=== PATIENT | female | born 1945 | race Caucasian/White ===

== ENCOUNTER 2018-01-21 12:00 | Inpatient (IN) ==
--- NOTE | 2018-01-21 12:11 | ED ---
HPI General Chief Complaint: Neuro Symptoms/Deficit Stated Complaint: neuro symp Time Seen by Provider: 01/21/18 12:04 Source: patient and EMS Mode of arrival: EMS Limitations: no limitations History of Present Illness HPI Narrative: Patient is a 72-year-old female who presents the emergency room by EMS under a stroke alert. As per EMS, patient was at her hairdresser today, reports that around 11 AM she began to have facial droop as well as left-sided weakness. Patient reports that she was having difficulty with ambulation as she was extremely ataxic. Patient denies history of CVA in the past. It is currently 12:08 PM in the emergency room, patient with complete resolution of symptoms at this time. BS was wnl by EMS. Patient currently not on any anticoagulants Related Data Home Medications Medication Instructions Recorded Confirmed aspirin [Aspirin Low Dose] 81 mg PO DAILY 01/21/18 01/21/18 giqgx-0-nnb-ota-kqz-utkr oil 1 cap PO DAILY 01/21/18 01/21/18 [[place]-3 (with dpa)] vitamins A,C,O-qehe-iaddow 1 tab PO DAILY 01/21/18 01/21/18 [PreserVision AREDS] Allergies Allergy/AdvReac Type Severity Reaction Status Date / Time No Known Allergies Allergy Unverified 01/21/18 12:15 Review of Systems ROS: all other systems reviewed are negative PMFSH History History Provided By: Patient Medical History Medical History Heart murmur after rheumatic heart disease (Acute) History of rheumatic fever as a child (Acute) Hypertension (Acute) Skin cancer (Acute) Surgical History Surgical History History of tubal ligation (Acute) Social History Social History Substance History: No History of Abuse Smoking Status: Never smoker How Often Do You Have a Drink Containing Alcohol: 2 to 4 times a month Exam Narrative Exam Narrative: GENERAL: Mild distress SKIN: Focused skin assessment warm/dry. HEAD: Atraumatic. Normocephalic. EYES: Pupils equal and round. No scleral icterus. No injection or drainage. ENT: No nasal bleeding or discharge. Mucous membranes pink and moist. NECK: Trachea midline. No JVD. CARDIOVASCULAR: Regular rate and rhythm. No murmur appreciated. RESPIRATORY: No accessory muscle use. Clear to auscultation. Breath sounds equal bilaterally. GASTROINTESTINAL: Abdomen soft, non-tender, nondistended. Hepatic and splenic margins not palpable. MUSCULOSKELETAL: No obvious deformities. No clubbing. No cyanosis. No edema. NEUROLOGICAL: Awake and alert. No obvious cranial nerve deficits. Motor grossly within normal limits. Normal speech. CN 2- 12 grossly intact with no neurological deficits, NIH scale 0 PSYCHIATRIC: Appropriate mood and affect; insight and judgment normal. Course Initial Documented Vital Signs Pulse Rate 102 H 01/21/18 12:05 Pulse Oximetry 97 01/21/18 12:05 Last Documented Vital Signs Temperature 99.1 F 01/21/18 12:40 Pulse Rate 96 H 01/21/18 12:40 Respiratory Rate 16 01/21/18 12:40 Blood Pressure 235/132 H 01/21/18 12:40 Pulse Oximetry 97 01/21/18 12:40 Critical Care Time Critical Care Time: Yes Total Critical Care Time: 30 Attestation: Aggregate critical care time was 30 minutes. Time to perform other separately billable procedures was not included in the critical care time. My time did not include minutes spent treating any other patients simultaneously or on activities that did not directly contribute to the patient's treatment. The services I provided to this patient were to treat and/or prevent clinically significant deterioration that could result in: , decompensation, deterioration I provided critical care services requiring my management, as noted below: Chart data review, documentation time, medication orders and management, vital sign assessments/reviewing monitor data, ordering and reviewing lab tests, ordering and interpreting/reviewing x-rays and diagnostic studies, care of the patient and discussion of the patient with the admitting physicians. NIH Stroke Scale NIH Stroke Scale Level of Consciousness: 0-Alert Orientation Questions: 0-Answers both correct Responds to Commands: 0-Both tasks correct Gaze Eye Movement: 0-Horizontal movement WNL Visual Mendoza: 0-No visual field defect Facial Movement: 0-Normal Motor Functions Arm LEFT: 0-No drift Motor Functions Arm RIGHT: 0-No drift Motor Functions Leg LEFT: 0-No drift Motor Functions Leg RIGHT: 0-No drift Limb Ataxia: 0-No ataxia Sensory Loss: 0-No sensory loss Best Language: 0-Normal Articulation: 0-Normal Extinction or Inattention Sensory: 0-Absent Total: 0 Medical Decision Making MDM Narrative Medical decision making narrative: During the course of the patients emergency department visit, the patients history, examination, and differential diagnosis were reviewed with the patient. The patient was placed on a personnel monitor with oximetry and frequent blood pressure monitoring. The patient had an IV access obtained and blood work sent for analysis. BS was 169 by EMS Patient with complete resolution of symptoms at this time, patient with an NIH scale of 0. Stroke alert was canceled as patient most likely had a TIA. Patient is not a candidate for TPA given her resolution of symptoms. The patients laboratory studies were reviewed CT of the head unremarkable, patient with complete resolutions of symptoms at this time. Patient was given an aspirin. Patient will require admission to the hospital for a TIA workup. Patient with a troponin of 0.16, she is hypertensive with a blood pressure of 235/132, while a permissive hypertension given her TIA symptoms. Patient's NIH scale continues to be 0. Patient also with renal insufficiency with creatinine 2.10. Patient reports that she thinks that she may have history of hypertension, she does not follow-up with her primary care doctor, reports that she has not seen a doctor since she was in her 20s. Patient will require admission to the hospital for workup of her symptoms. case reviewed with Dr. Sands who accepts pt to his service Medical Screen Exam Complete: Yes Emergency Medical Condition: Yes Differential Diagnosis Differential Diagnosis: CVA, TIA, hypertensive emergency, ICH Medical Records Medical records reviewed: Yes I reviewed the patient's medical records. Lab Data Result diagrams: 01/21/18 12:07 01/21/18 12:07 Lab Results 01/21/18 01/21/18 01/21/18 Range/Units 12:07 12:07 12:07 CBC w Diff Auto diff final WBC 13.3 H (4.0-11.0) th/mm3 RBC 3.56 L (4.00-5.30) mil/mm3 Hgb 10.0 L (11.6-15.3) gm/dL Hct 31.6 L (35.0-46.0) % MCV 88.8 (80.0-100.0) fL MCH 28.1 (27.0-34.0) pg MCHC 31.7 L (32.0-36.0) % RDW 13.8 (11.6-17.2) % Plt Count 313 (150-450) th/mm3 MPV 10.2 (7.0-11.0) fL Neut % (Auto) 86.9 H (16.0-70.0) % Lymph % (Auto) 7.5 L (9.0-44.0) % [place] % (Auto) 1.8 (0.0-8.0) % Eos % (Auto) 0.8 (0.0-4.0) % Baso % (Auto) 3.0 H (0.0-2.0) % Neut # (Auto) 11.6 H (1.8-7.7) th/mm3 Lymph # (Auto) 1.0 (1.0-4.8) th/mm3 [place] # (Auto) 0.2 (0.0-0.9) th/mm3 Eos # (Auto) 0.1 (0.0-0.4) th/mm3 Baso # (Auto) 0.4 H (0.0-0.2) th/mm3 WBC Differential . Differential Comment . PT 11.3 (9.8-11.6) sec INR 1.1 Ratio APTT 22.4 L (24.3-30.1) sec Fibrinogen 364 (227-377) mg/dL Sodium 142 (136-145) meq/L Potassium 4.2 (3.5-5.1) meq/L Chloride 106 (98-107) meq/L Carbon Dioxide 23.8 (21.0-32.0) meq/L Anion Gap 12 (5-15) meq/L BUN 34 H (7-18) mg/dL Creatinine 2.10 H (0.50-1.00) mg/dL Estimated GFR 23 L (>89) mL/min POC Glucose (68-110) mg/dl Random Glucose 147 H (74-106) mg/dL Calcium 9.1 (8.5-10.1) mg/dL Total Creatine Kinase 206 H (26-192) U/L CK-MB (CK-2) 2.9 (0.5-3.6) ng/mL CK-MB (CK-2) % 1.4 (0.0-4.0) % Troponin I 0.16 H (0.02-0.05) ng/mL 01/21/18 Range/Units 12:25 CBC w Diff WBC (4.0-11.0) th/mm3 RBC (4.00-5.30) mil/mm3 Hgb (11.6-15.3) gm/dL Hct (35.0-46.0) % MCV (80.0-100.0) fL MCH (27.0-34.0) pg MCHC (32.0-36.0) % RDW (11.6-17.2) % Plt Count (150-450) th/mm3 MPV (7.0-11.0) fL Neut % (Auto) (16.0-70.0) % Lymph % (Auto) (9.0-44.0) % [place] % (Auto) (0.0-8.0) % Eos % (Auto) (0.0-4.0) % Baso % (Auto) (0.0-2.0) % Neut # (Auto) (1.8-7.7) th/mm3 Lymph # (Auto) (1.0-4.8) th/mm3 [place] # (Auto) (0.0-0.9) th/mm3 Eos # (Auto) (0.0-0.4) th/mm3 Baso # (Auto) (0.0-0.2) th/mm3 WBC Differential Differential Comment PT (9.8-11.6) sec INR Ratio APTT (24.3-30.1) sec Fibrinogen (227-377) mg/dL Sodium (136-145) meq/L Potassium (3.5-5.1) meq/L Chloride (98-107) meq/L Carbon Dioxide (21.0-32.0) meq/L Anion Gap (5-15) meq/L BUN (7-18) mg/dL Creatinine (0.50-1.00) mg/dL Estimated GFR (>89) mL/min POC Glucose 165 H (68-110) mg/dl Random Glucose (74-106) mg/dL Calcium (8.5-10.1) mg/dL Total Creatine Kinase (26-192) U/L CK-MB (CK-2) (0.5-3.6) ng/mL CK-MB (CK-2) % (0.0-4.0) % Troponin I (0.02-0.05) ng/mL Imaging Data Radiologist's impression: Chest X-Ray 01/21/18 12:04 CONCLUSION: Cardiomegaly and large right-sided pleural effusion. Head CT 01/21/18 12:04 CONCLUSION: 1. No acute intracranial abnormality. Report was called by Dr. Collado to Dr. Jarquin.] ECG Data EKG Prior to Arrival: Yes Attestation: I personally reviewed and interpreted this ECG as follows: Interpretation: EKG at 1244: NSR at 96bpm, qt/qtc: 360/414, nonspecific st - t wave changes, there are no previous ekg's to compare Discharge Plan Discharge Disposition Patient Disposition: 30 Still Patient Discharge Condition Condition: Fair Discharge Details Diagnosis: TIA (transient ischemic attack), Acute renal insufficiency Physicians Team ED Provider: Dorothy Jarquin Other Providers: Tanya Montez Rxs /Orders / Referrals /Forms Prescriptions: No Action aspirin [Aspirin Low Dose] 81 mg Tablet,Delayed Release (Dr/Ec) 81 mg PO DAILY RF: 0 vitamins A,C,L-ejcz-dginkz [PreserVision AREDS] 7,160-113-100 omdf-no-xicl Tablet 1 tab PO DAILY RF: 0 tedeu-5-zro-euv-zmt-mrfb oil [[place]-3 (with dpa)] 1,050-1,200 mg Capsule 1 cap PO DAILY RF: 0 Status ED Status: With Doctor
--- NOTE | 2018-01-21 12:18 | CT ---
EXAM DATE: 01/21/2018 12:08 PM EDT AGE/SEX: 72 years / Female INDICATIONS: STROKE ALERT, Left side facial droop CLINICAL DATA: This is the patient's initial encounter. Patient reports that signs and symptoms have been present for 1 day and indicates a pain score of 0/10. MEDICAL/SURGICAL HISTORY: Hypertension. None. RADIATION DOSE: 54.63 CTDI (mGy) COMPARISON: No prior exams available for comparison. TECHNIQUE: CT of the head without contrast. Using automated exposure control and adjustment of the mA and/or kV according to patient size, radiation dose was kept as low as reasonably achievable to ob tain optimal diagnostic quality images. DICOM format image data is available electronically for revi ew and comparison. FINDINGS: Cerebrum: The ventricles are normal for age. No evidence of midline shift, mass lesion, hemorrhage o r acute infarction. No extraaxial fluid collections are seen. Posterior Fossa: The cerebellum and brainstem are intact. The 4th ventricle is midline. The cerebe llopontine angle is unremarkable. Extracranial: The visualized portion of the orbits is intact. Skull: The calvaria is intact. No evidence of skull fracture. CONCLUSION: 1. No acute intracranial abnormality. Report was called by Dr. Collado to Dr. Jarquin.] Electronically signed by: Willis Sanford MD 01/21/2018 12:16 PM EDT
[2018-01-21 12:19] LABS: Baso # (Auto) 0.4 th/mm3 (0.0-0.2); Eos # (Auto) 0.1 th/mm3 (0.0-0.4); Eos % (Auto) 0.8 % (0.0-4.0); Hematocrit 31.6 % (35.0-46.0); Lymph % (Auto) 7.5 % (9.0-44.0); Mean Corpuscular HGB Conc 31.7 % (32.0-36.0); Mean Corpuscular Hemoglobin 28.1 pg (27.0-34.0); Mean Corpuscular Volume 88.8 fL (80.0-100.0); Mean Platelet Volume 10.2 fL (7.0-11.0); Mono # (Auto) 0.2 th/mm3 (0.0-0.9); Mono % (Auto) 1.8 % (0.0-8.0); Neut # (Auto) 11.6 th/mm3 (1.8-7.7); Neut % (Auto) 86.9 % (16.0-70.0); Platelet Count 313 th/mm3 (150-450); Red Blood Count 3.56 mil/mm3 (4.00-5.30); Red Cell Distribution Width 13.8 % (11.6-17.2); White Blood Count 13.3 th/mm3 (4.0-11.0)
[2018-01-21] MEDS ORDERED: Aspirin 325 MG Tablet PO ONE (12:19)
[2018-01-21 12:20] LABS: Potassium 4.2 meq/L (3.5-5.1)
[2018-01-21 12:22] LABS: Calcium 9.1 mg/dL (8.5-10.1)
[2018-01-21 12:23] LABS: Carbon Dioxide 23.8 meq/L (21.0-32.0)
[2018-01-21 12:24] LABS: Activated Partial Thrombo Time 22.4 sec (24.3-30.1); INR 1.1 Ratio; Prothrombin Time 11.3 sec (9.8-11.6)
--- NOTE | 2018-01-21 12:30 | XR ---
EXAM DATE: 01/21/2018 12:04 PM EDT AGE/SEX: 72 years / Female INDICATIONS: STROKE ALERT, Left side facial droop CLINICAL DATA: This is the patient's initial encounter. Patient reports that signs and symptoms have been present for 1 day and indicates a pain score of 0/10. MEDICAL/SURGICAL HISTORY: Hypertension. None. COMPARISON: No prior exams available for comparison. FINDINGS: Supine view of the chest demonstrates severe cardiomegaly. There is hazy increased opacity of the rig ht hemithorax as compared to the left and there is curvilinear fluid meniscus sign involving the infe rior right hemithorax. Findings are consistent with a layering right-sided pleural effusion. CONCLUSION: Cardiomegaly and large right-sided pleural effusion. Electronically signed by: Sindi Penaloza MD 01/21/2018 12:28 PM EDT
[2018-01-21 12:31] LABS: Troponin I 0.16 ng/mL (0.02-0.05)
[2018-01-21 12:41] LABS: CKMB Percent 1.4 % (0.0-4.0); Creatine Kinase MB 2.9 ng/mL (0.5-3.6)
[2018-01-21] MEDS: Sod Chloride 0.9% Inj 1,000 ML IV.CONT SCH (12:41)
--- NOTE | 2018-01-21 14:33 | MB ---
cc: Tanya Montez MD DATE: 01/21/2018 REASON FOR CONSULTATION: Possible stroke. HISTORY OF PRESENT ILLNESS: This is a 72-year-old woman with a sudden onset of left-sided weakness, facial droop while she was at her hairdresser around 11:00, having difficulty with walking when she came into the ER about a little bit after 12:00, per ER it stated that she had complete resolution of her symptoms. The patient states that she is almost near baseline, but still feels a little bit weaker on the left side. Has no double vision, loss of vision, chest pain, shortness of breath, tingling or numbness. Has no significant past medical history. Has a history of rheumatic fever as a child, rheumatic heart disease, hypertension, skin cancer. PAST SURGICAL HISTORY: Tubal ligation only. SOCIAL HISTORY: Does not smoke. Drinks 2-4 times a month. Does not have a primary care physician. PHYSICAL EXAMINATION: VITAL SIGNS: Her blood pressure is 235/132, saturating at 97% on room air, respiratory rate, pulse is 96, temperature 99.1. NECK: Supple. I do not appreciate any bruits. HEART: Regular. LUNGS: Clear. GENERAL: She is awake and alert. She is not aphasic or dysarthric. There may be a mildly attenuated left nasolabial fold. Minimal weakness, if at best 5-/5 left arm, left leg. DTRs are symmetrical. Cerebellar normal. Sensory is intact to light touch and temperature. Gait is withheld. She is at rest currently. LABORATORY DATA: Reviewed. CBC: White count 13.3, hemoglobin 10, platelets are 313,000. PTT 22.4, INR 1.1. BUN 34, creatinine 2.1. GFR 23. CK 206. Troponin 0.16. CT of the head did not yield anything acute. ASSESSMENT AND PLAN: 1. A 72-year-old woman with some left-sided deficits, still concerning for an acute infarct. 2. Renal disease, likely questionable old or new, unknown. 3. Hyperglycemia. 4. WBC elevation, leukocytosis. Recommend putting her through a stroke workup, MRI brain, [place] of [place], carotid ultrasound, 2-D echo, fasting lipid panel, check hemoglobin A1c. Start her on full dose aspirin. She states she takes baby aspirin when she remembers, so she is not very compliant. Start normalizing her blood pressure, but avoiding hypotension. SCD, Lovenox for DVT prevention. PT, OT, speech therapy assessment. 5. Depending on findings, further recommendation. MD SHAYY Chambers/coty , 01:42 PM , 01:50 PM
[2018-01-21] MEDS ORDERED: Dextrose 50% in Water 50 ML Vial IV.PUSH PRN (15:36)
--- NOTE | 2018-01-21 16:12 | P.HP ---
History of Present Illness Primary Care Physician: No Primary Care Physician Chief Complaint: Unable to stand, left-sided weakness History of Present Illness: 72-year-old female with known history of rheumatic heart disease who has never been to a doctor since she was 21 years old presented to the hospital because acute onset of left-sided weakness. Patient states that she went to her hairdresser today and when she got home at approximately 11 AM she went to get out of the van and she felt weak so she called her who came over to try to help her to manage when she stand on her left side she fell down to the ground and was unable to get herself back up. They did call the ambulance who brought her to the hospital at approximately 1145. Stroke alert was called once patient arrived at the hospital. Patient indicates that since coming to the hospital she has regained her strength in the left side of her body. She denied any visual disturbances, headache, paresthesia, difficulty speaking, difficulty eating swallowing food, loss of bowel or bladder control, slurred speech. Patient had workup done emergency department and found to have hypertensive emergency with neurological symptoms. Patient was recommend admission to the ICU for continued care management. - Diagnosis (1) Hypertensive emergency (2) TIA (transient ischemic attack) (3) Elevated troponin (4) Acute kidney injury (5) Leukocytosis Inpatient Certification: I certify that the inpatient services were ordered in accordance with Medicare regulations governing the order. This includes certification that hospital inpatient services are reasonable and necessary and in the case of services not specified as inpatient-only under 42 CFR 419.22(n), that they are appropriately provided as inpatient services in accordance to with the 2-midnight benchmark under 43 CFR 412.3(e) Estimated Total Length of Stay (Days): 3 Plans for Post Hospital Care: Not yet determined Review of Systems All other systems reviewed negative except as stated in HPI Neurologic: Reports abnormal walking, Reports unsteadiness, Reports weakness PMFSH - History History Provided By: Patient - Medical History Medical History: Medical History (Last Reviewed 01/21/18 @ 15:50 by HUMBERTO Corral) Heart murmur after rheumatic heart disease History of rheumatic fever as a child Skin cancer Hypertension - Surgical History Surgical History: Surgical History (Last Reviewed 01/21/18 @ 15:50 by HUMBERTO Corral) History of tubal ligation - Family History Family History: Family History (Last Updated 01/21/18 @ 15:52 by HUMBERTO Corral) Father History of coronary artery disease - Tobacco History Smoking Status: Never smoker - Alcohol History How Often Do You Have a Drink Containing Alcohol: 2 to 4 times a month - Substance Use History Substance History: No History of Abuse - Immunization History Tetanus Immunization: Unsure Hx Influenza Vaccine This Season: No Medications and Allergies Active Medications: Active Medications Aspirin (Aspirin) 325 mg PO DAILY ROCIO Atorvastatin Calcium (Lipitor) 10 mg PO HS ROCIO Dextrose (D50w Vial) 50 ml IV.PUSH UNSCH PRN PRN Reason: PER HYPOGLYCEMIA PROTOCOL Enalaprilat (Vasotec Inj) 1.25 mg IV.PUSH Q4H PRN PRN Reason: For SBP > 220 or DBP > 120 Glucagon (Glucagon Inj) 1 mg OTHER UNSCH PRN PRN Reason: for Hypoglycemia Protocol Sodium Chloride (Ns Inj) 1,000 mls @ 42 mls/hr IV.CONT .[id number] ROCIO Last Admin: 01/21/18 12:41 Dose: 70 mls/hr Insulin Aspart (Novolog Insulin Correctional Sugar Inj) 0 unit SQ ACHS ROCIO; Protocol Sodium Chloride (Ns Flush) 2 ml IV.FLUSH BID ROCIO Sodium Chloride (Ns Flush) 2 ml IV.FLUSH PRN PRN PRN Reason: FLUSH AFTER USING IV ACCESS Allergies Allergy/AdvReac Type Severity Reaction Status Date / Time No Known Allergies Allergy Unverified 01/21/18 12:15 Home Medications Medication Instructions Recorded Confirmed Type aspirin [Aspirin Low Dose] 81 mg PO DAILY 01/21/18 01/21/18 History sbdoa-[id number]-[id number]-diiz oil 1 cap PO DAILY 01/21/18 01/21/18 History [Irving-3 (with dpa)] vitamins A,C,N-wfec-lshzjk 1 tab PO DAILY 01/21/18 01/21/18 History [PreserVision AREDS] Exam Vital signs: Vital Signs 01/21/18 12:05 01/21/18 12:09 01/21/18 12:40 Temperature 99.1 F Pulse Rate 102 H 102 H 96 H Respiratory Rate 16 16 Blood Pressure 216/117 H 235/132 H Pulse Oximetry 97 97 97 01/21/18 13:37 01/21/18 14:55 01/21/18 15:00 Temperature 98.9 F Pulse Rate 98 H 98 H Respiratory Rate 16 23 Blood Pressure 237/117 H 246/121 H Pulse Oximetry 95 97 Intake & Output 01/20/18 01/21/18 01/21/18 18:59 06:59 18:59 Weight 82 kg Other: Date of Last Bowel Movement 01/21/18 Narrative: GENERAL: Well-developed, well-nourished, in no acute distress. alert and orientated HEENT: Head is normocephalic without any lesions or masses noted. Facial features are symmetric. Eyes: Pupils equal round reactive to light. Extraocular muscles are intact. Conjunctivae were clear. Oropharyngeal: Pharynx without any erythema edema. Tongue is midline without deviation. Buccal mucosa is moist without any masses or lesions NECK: Supple without any masses. Trachea midline no deviation. No JVD, no bruits are appreciated CARDIAC: Regular rhythm, regular rate. S1/S2 are heard. Significant 3/6 crescendo type ejection cardiac murmur, no gallops or rubs. LUNGS: Clear to auscultation bilaterally. No wheeze, rhonchi or rales. No use of accessory muscles on inspiration or expiration. ABDOMEN: Soft, nontender. Nondistended. Bowel sounds heard in all 4 quadrants. No organomegaly or masses. Negative rebound, negative guarding EXTREMITIES: No edema, pulses are equal bilaterally. No cyanosis or clubbing NEUROLOGY: Mood and affect appear appropriate. Cranial nerves II through XII grossly intact. Muscle strength 5/5 in upper and lower extremities bilaterally. Deep tendon reflexes are 2+ in upper and lower extremities bilaterally. Results - Labs CBC & Chem 7: 01/21/18 12:07 01/21/18 12:07 Labs: Laboratory Results - last 24 hr 01/21/18 01/21/18 01/21/18 12:07 12:07 12:07 CBC w Diff Auto diff final WBC 13.3 H RBC 3.56 L Hgb 10.0 L Hct 31.6 L MCV 88.8 MCH 28.1 MCHC 31.7 L RDW 13.8 Plt Count 313 MPV 10.2 Neut % (Auto) 86.9 H Lymph % (Auto) 7.5 L Miller % (Auto) 1.8 Eos % (Auto) 0.8 Baso % (Auto) 3.0 H Neut # (Auto) 11.6 H Lymph # (Auto) 1.0 Miller # (Auto) 0.2 Eos # (Auto) 0.1 Baso # (Auto) 0.4 H WBC Differential . Differential Comment . PT 11.3 INR 1.1 APTT 22.4 L Fibrinogen 364 Sodium 142 Potassium 4.2 Chloride 106 Carbon Dioxide 23.8 Anion Gap 12 BUN 34 H Creatinine 2.10 H Estimated GFR 23 L POC Glucose Random Glucose 147 H Calcium 9.1 Total Creatine Kinase 206 H CK-MB (CK-2) 2.9 CK-MB (CK-2) % 1.4 Troponin I 0.16 H Blood Type Blood Type Recheck Antibody Screen 01/21/18 01/21/18 12:07 12:25 CBC w Diff WBC RBC Hgb Hct MCV MCH MCHC RDW Plt Count MPV Neut % (Auto) Lymph % (Auto) Miller % (Auto) Eos % (Auto) Baso % (Auto) Neut # (Auto) Lymph # (Auto) Miller # (Auto) Eos # (Auto) Baso # (Auto) WBC Differential Differential Comment PT INR APTT Fibrinogen Sodium Potassium Chloride Carbon Dioxide Anion Gap BUN Creatinine Estimated GFR POC Glucose 165 H Random Glucose Calcium Total Creatine Kinase CK-MB (CK-2) CK-MB (CK-2) % Troponin I Blood Type A Positive Blood Type Recheck Required Antibody Screen Negative - Imaging Impressions Chest X-Ray 01/21/18 12:04 CONCLUSION: Cardiomegaly and large right-sided pleural effusion. Head CT 01/21/18 12:04 CONCLUSION: 1. No acute intracranial abnormality. Report was called by Dr. Collado to Dr. Jarquin.] Caprini VTE Risk Assessment Caprini VTE Risk Assessment: Moderate/High Risk (score >= 2) Caprini Risk Assessment Model: Point Value = 1 Point Value = 2 Point Value = 3 Point Value = 5 Age 41-60 Minor surgery BMI > 25 kg/m2 Swollen legs Varicose veins or History of unexplained or recurrent spontaneous Oral contraceptives or hormone replacement Sepsis (< 1 month) Serious lung disease, including pneumonia (< 1 month) Abnormal pulmonary function Acute myocardial infarction Congestive heart failure (< 1 month) History of inflammatory bowel disease Medical patient at bed rest Age 61-74 Arthroscopic surgery Major open surgery (> 45 min) Laparoscopic surgery (> 45 min) Malignancy Confined to bed (> 72 hours) Immobilizing plaster cast Central venous access Age >= 75 History of VTE Family history of VTE Factor V Leiden Prothrombin [id number] Lupus anticoagulant Anticardiolipin antibodies Elevated serum homocysteine Heparin-induced thrombocytopenia Other congenital or acquired thrombophilia Stroke (< 1 month) Elective arthroplasty Hip, pelvis, or leg fracture Acute spinal cord injury (< 1 month) Prophylaxis Regimen: Total Risk Factor Score Risk Level Prophylaxis Regimen 0-1 Low Early ambulation 2 Moderate Order ONE of the following: *Sequential Compression Device (SCD) *Heparin 5000 units SQ BID 3-4 Higher Order ONE of the following medications: *Heparin 5000 units SQ TID *Enoxaparin/Lovenox 40 mg SQ daily (WT < 150 kg, CrCl > 30 mL/min) *Enoxaparin/Lovenox 30 mg SQ daily (WT < 150 kg, CrCl > 10-29 mL/min) *Enoxaparin/Lovenox 30 mg SQ BID (WT < 150 kg, CrCl > 30 mL/min) AND/OR *Sequential Compression Device (SCD) 5 or more Highest Order ONE of the following medications: *Heparin 5000 units SQ TID (Preferred with Epidurals) *Enoxaparin/Lovenox 40 mg SQ daily (WT < 150 kg, CrCl > 30 mL/min) *Enoxaparin/Lovenox 30 mg SQ daily (WT < 150 kg, CrCl > 10-29 mL/min) *Enoxaparin/Lovenox 30 mg SQ BID (WT < 150 kg, CrCl > 30 mL/min) AND *Sequential Compression Device (SCD) Assessment and Plan - Assessment (1) Hypertensive emergency Code(s): I16.1 - Hypertensive emergency Status: Acute (2) TIA (transient ischemic attack) Code(s): G45.9 - Transient cerebral ischemic attack, unspecified Status: Acute (3) Elevated troponin Code(s): R74.8 - Abnormal levels of other serum enzymes Status: Acute (4) Acute kidney injury Code(s): N17.9 - Acute kidney failure, unspecified Status: Acute (5) Leukocytosis Code(s): D72.829 - Elevated white blood cell count, unspecified Status: Acute - Plan Acute neurological deficit with left-sided weakness -We will need to rule out CVA, since patient has regained her strength possible TIA -Full neurological workup will be ascertained to include MRI of the brain, MRA of the brain, echocardiogram, Holter monitor, carotid ultrasound, -Additional laboratory studies to include B12, folate, sed rate, TSH, lipid panel, hemoglobin A1c -We will obtain PT/OT/ST evaluations -Neurology consult has been performed, they were called during stroke alert -Permissive hypertension to maintain blood pressure less than 220/120 -Head of bed flat Hypertensive emergency -Unknown if patient does have underlying cardiac disease and hypertension -With patient having acute neurological symptoms will need to keep hypertensive permissive at this time -Vasotec as needed for blood pressure greater than 220/120 -We will start blood pressure management once cleared by neurology Elevated troponin, possible non-ST elevated myocardial infarction -Troponins equivocal at this time at 0.16, this could be secondary to hypertensive emergency, acute kidney injury -We will continue to trend cardiac enzymes to evaluate for any acute coronary event -Initial EKG does show sinus rhythm with and was read as possible septal myocardial infarction, will continue to trend EKGs -Consult cardiology on-call Acute kidney injury -Unknown whether patient has chronic kidney disease from hypertensive renal disease -We will do minimal IV fluids at this time due to the patient having significant cardiomegaly, pleural effusion -Continue monitor renal functions -Avoid nephrotoxins Leukocytosis -This could be reactive to underlying condition, no signs of infectious process at this time -Continue monitor CBC Cardiomegaly, cardiac murmur, pleural effusion -Patient does have history of rheumatic heart disease -Await the echocardiogram for further evaluation to evaluate for heart failure -Obtain beta type Natriuretic peptide -Obtain chest ultrasound to see if there is enough fluid to aspirate Hyperglycemia -Accu-Cheks with sliding scale insulin -Awaiting hemoglobin A1c DVT prevention -Sequential compression devices
[2018-01-21 17:02] LABS: Albumin 3.5 g/dL (3.4-5.0)
[2018-01-21 17:09] LABS: Total Protein 7.6 g/dL (6.4-8.2)
--- NOTE | 2018-01-21 17:25 | MR ---
EXAM DATE: 01/21/2018 3:57 PM EDT AGE/SEX: 72 years / Female INDICATIONS: Left sided weakness. Fall. CLINICAL DATA: This is the patient's initial encounter. Patient reports that signs and symptoms have been present for 1 day and indicates a pain score of 0/10. MEDICAL/SURGICAL HISTORY: Carcinoma, skin cancer. Hypertension. Tubal ligation. COMPARISON: [facility], MR HEAD W/O CONTRAST, 01/21/2018. . TECHNIQUE: 3D [id number] MRA was performed. Source images, multiplanar STS MIP, and 3D volum e MIP reconstructions were reviewed. FINDINGS: Anterior Circulation: Intracranial Carotid Arteries: Patent. RICHARD: There is no evidence for aneurysm, vessel truncation or stenosis, and no evidence for vascular m alformation. MCA: There is no evidence for aneurysm, vessel truncation or stenosis, and no evidence for vascular m alformation. Posterior Circulation: Distal Vertebral Arteries: Distal Vertebral arteries are symetrical and patent. Basilar Artery: There is no evidence for aneurysm, vessel truncation or stenosis, and no evidence for vascular malformation. [employer] and Cerebellar Branches: There is no evidence for aneurysm, vessel truncation or stenosis, and no evidence for vascular malformation. CONCLUSION: 1. Negative MRA Cow ([place]) non contrast. 2. Specifically, no evidence for large vessel occlusion. Electronically signed by: Willis Sanford MD 01/21/2018 5:24 PM EDT
--- NOTE | 2018-01-21 17:34 | MR ---
EXAM DATE: 01/21/2018 3:57 PM EDT AGE/SEX: 72 years / Female INDICATIONS: Left sided weakness. Fall. CLINICAL DATA: This is the patient's initial encounter. Patient reports that signs and symptoms have been present for 1 day and indicates a pain score of 0/10. MEDICAL/SURGICAL HISTORY: Carcinoma, skin cancer. Hypertension. Tubal ligation. COMPARISON: No prior exams available for comparison. TECHNIQUE: Multiplanar, multisequence examination of the brain was performed without contrast. FINDINGS: Cerebrum: The ventricles are normal for age. No evidence of midline shift, mass lesion, hemorrhage. . No extraaxial fluid collections are seen. The pituitary gland and suprasellar cistern are normal in configuration. White Matter: No significant signal abnormalities are seen in the white matter. Posterior Fossa: The cerebellum and brainstem are intact. The 4th ventricle is midline. The cerebel lopontine angle is unremarkable. The cerebellar tonsils are normal in position. Diffusion Imaging: There is a small area of signal abnormality on the ADC map images in the right th alamic region measuring approximately 1 cm x 4 mm. Correlating mild hyperintensity is seen on the dif fusion-weighted images findings indicate a possible small acute thalamic infarct. Extracranial: The visualized portions of the orbits and paranasal sinuses are unremarkable. CONCLUSION: Possible small acute thalamic infarct on the right. Electronically signed by: Dieter Mitchell MD 01/21/2018 5:32 PM EDT
[2018-01-21] MEDS: Insulin NovoLOG Aspart Correctional Sugar Inj SQ SCH ×2 (18:49→20:28)
[2018-01-21 19:05] LABS: Creatine Kinase 236 U/L (26-192)
[2018-01-21 19:06] LABS: Troponin I 0.28 ng/mL (0.02-0.05)
[2018-01-21 19:17] LABS: CKMB Percent 1.9 % (0.0-4.0); Creatine Kinase MB 4.5 ng/mL (0.5-3.6)
--- NOTE | 2018-01-21 19:51 | US ---
EXAM DATE: 01/21/2018 12:00 AM EDT AGE/SEX: 72 years / Female INDICATIONS: Cerebrovascular accident. CLINICAL DATA: This is the patient's initial encounter. Patient reports that signs and symptoms have been present for 1 day and indicates a pain score of 0/10. MEDICAL/SURGICAL HISTORY: Hypertension. Heart murmur. Rheumatic fever. Skin cancer. Tubal liga tion. COMPARISON: No prior exams available for comparison. VELOCITY PARAMETERS: ICA/CCA Ratio: Right 1.9 , Left 1.2 ICA: Right 107 cm/sec, Left 77 cm/sec CCA: Right 58 cm/sec, Left 62 cm/sec ECA: Right 82 cm/sec, Left 68 cm/sec Vertebral: Right 78 cm/sec antegrade, Left 59 cm/sec antegrade FINDINGS: Right Carotid: No significant plaque is visualized.The waveforms are within normal limits. Left Carotid: No significant plaque is visualized. The waveforms are within normal limits. Other: None. CONCLUSION: 1. Right Internal Carotid Artery: No evidence of hemodynamically significant carotid stenosis. 2. Left Internal Carotid Artery: No evidence of hemodynamic clinically significant carotid stenosis. Electronically signed by: Dieter Mitchell MD 01/21/2018 7:50 PM EDT
--- NOTE | 2018-01-21 19:54 | US ---
EXAM DATE: 01/21/2018 12:00 AM EDT AGE/SEX: 72 years / Female INDICATIONS: Right pleural effusion. CLINICAL DATA: This is the patient's initial encounter. Patient reports that signs and symptoms have been present for 1 day and indicates a pain score of 0/10. MEDICAL/SURGICAL HISTORY: . Heart murmur. Rheumatic fever. Skin cancer. Tubal ligation. COMPARISON: No prior exams available for comparison. MEASUREMENTS: Skin To Parietal Pleura:__1.8 cm Skin To Max Safe Depth:__5.2 cm Estimated Fluid Volume:__1404 cc Fluid Composition:__simple FINDINGS: Pleural effusion as above. CONCLUSION: Large right pleural effusion. Electronically signed by: Dieter Mitchell MD 01/21/2018 7:52 PM EDT
[2018-01-22 00:28] LABS: Vitamin B12 921 pg/mL (193-986)
[2018-01-22] MEDS: hydrALAZINE HCl Inj 20 MG/ML Vial IV.PUSH PRN ×2 (02:07→17:00)
[2018-01-22 02:12] LABS: CKMB Percent 1.9 % (0.0-4.0); Troponin I 0.38 ng/mL (0.02-0.05)
[2018-01-22 05:41] LABS: Baso # (Auto) 0.1 th/mm3 (0.0-0.2); Baso % (Auto) 0.4 % (0.0-2.0); Eos # (Auto) 0.1 th/mm3 (0.0-0.4); Eos % (Auto) 0.7 % (0.0-4.0); Hematocrit 27.7 % (35.0-46.0); Hemoglobin 9.4 gm/dL (11.6-15.3); Lymph # (Auto) 0.8 th/mm3 (1.0-4.8); Lymph % (Auto) 6.3 % (9.0-44.0); Mean Corpuscular HGB Conc 33.8 % (32.0-36.0); Mean Corpuscular Hemoglobin 29.5 pg (27.0-34.0); Mean Corpuscular Volume 87.3 fL (80.0-100.0); Mean Platelet Volume 9.8 fL (7.0-11.0); Mono # (Auto) 0.7 th/mm3 (0.0-0.9); Mono % (Auto) 5.4 % (0.0-8.0); Neut % (Auto) 87.2 % (16.0-70.0); Platelet Count 278 th/mm3 (150-450); Red Blood Count 3.18 mil/mm3 (4.00-5.30); Red Cell Distribution Width 14.2 % (11.6-17.2); White Blood Count 12.7 th/mm3 (4.0-11.0)
[2018-01-22 05:53] LABS: Chloride 108 meq/L (98-107); Potassium 3.6 meq/L (3.5-5.1); Sodium 144 meq/L (136-145)
[2018-01-22 05:56] LABS: Calcium 8.6 mg/dL (8.5-10.1)
[2018-01-22 05:57] LABS: Anion Gap 9 meq/L (5-15); Blood Urea Nitrogen 33 mg/dL (7-18); Carbon Dioxide 26.7 meq/L (21.0-32.0); Glucose,Random 114 mg/dL (74-106)
--- NOTE | 2018-01-22 05:59 | MB ---
cc: Arian Courtney DO DATE: 01/21/2018 REASON FOR CONSULTATION: Hypertensive urgency, elevated troponin, murmur. HISTORY OF PRESENT ILLNESS: Hugh Robledo is a pleasant 72-year-old female who presented to [facility] Emergency Room after an inability to stand. She states that she went to her hairdresser today and when she got home at approximately 11 a.m., she was getting out of her van and felt weak on her left side, so she called her . He came over and tried to help her, but at the time, she was having difficulty with her left side with overall weakness and motor skills and she fell down to the ground and was unable to get herself back up. He called an ambulance who brought her to the hospital. She underwent an MRI, which showed a possible small acute infarct. In seeing her, she is currently hypertensive as well as found to have an elevated troponin. She states that her weakness on her left side has gotten somewhat better. She states that she has not seen a doctor since she was 21 years old. PAST MEDICAL HISTORY: 1. Rheumatic fever as a child. 2. Skin cancer. 3. Hypertension. PAST SURGICAL HISTORY: Tubal ligation. ALLERGIES: NO KNOWN DRUG ALLERGIES. MEDICATIONS: 1. Aspirin 81 mg daily. 2. Fish oil capsule daily. FAMILY HISTORY: Denies premature coronary artery disease or sudden cardiac within the family. SOCIAL HISTORY: Denies tobacco, alcohol or drug abuse. REVIEW OF SYSTEMS: Fourteen systems were reviewed including osteopathic. Pertinent positives and negatives above, otherwise negative. PHYSICAL EXAMINATION: VITAL SIGNS: Temperature 98.3, heart rate 86, blood pressure is 235/117, respirations 25, pulse oximetry 98% on 2 liters. GENERAL: The patient appears well, in no acute distress, alert, awake and oriented x3. HEENT: Extraocular muscles intact. Mucous membranes moist. NECK: Supple. No JVD at 45 degrees. No carotid bruits heard bilaterally. Carotid upstroke is brisk in nature. HEART: Regular rate and rhythm. Positive first and second heart sounds with a 2/6 crescendo decrescendo murmur, which is mid peaking to the right sternal border. LUNGS: Decreased breath sounds bilaterally, but no wheezes, rales or rhonchi. ABDOMEN: Soft, nontender, nondistended. No organomegaly noted. EXTREMITIES: Show no clubbing, cyanosis or edema. Femoral and distal pulses intact bilaterally. NEUROLOGIC: Appears to have some left-sided weakness in comparison to the right extremities. SKIN: Warm, dry and intact. OSTEOPATHIC: No kyphoscoliosis or lordosis. LABORATORY DATA: Hemoglobin 10.2, hematocrit 31.6, platelets 313. Potassium 4.2, BUN 34, creatinine 2.1. Troponin 0.28. Electrocardiogram (01/21/2018 at 18:24): Sinus rhythm, poor R-wave progression, cannot rule out anteroseptal myocardial infarction. IMPRESSION: 1. Acute small thalamic infarct on the right. 2. Hypertensive urgency. 3. Non-ST elevation myocardial infarction. 4. History of rheumatic fever. 5. Murmur on exam. RECOMMENDATIONS: 1. Ms. Robledo presented with left-sided weakness and appears to have had an acute CVA. She has been seen by Neurology for further recommendations. 2. She did come in with hypertensive urgency and a blood pressure of 246/121. Obviously, we need to allow permissive hypertension, but would attempt to try to keep her blood pressure under 220 systolically. 3. She appears to have significant pleural effusion and consideration should be made for a thoracentesis. 4. She does have a murmur on exam, which is difficult to assess, but is probably either moderate aortic stenosis or mitral regurgitation. We will check a 2D echo to look at her overall left ventricular function, cardiac structure, and possible valvulopathies. 5. She does have an elevated troponin, but this is most likely due to her acute kidney injury as well as hypertensive urgency. We will continue to follow her cardiac enzymes. As she has had a neurological event, would not plan on her undergoing an ischemic evaluation at this time. This most likely will be done in the outpatient setting in the near future after recovery. She does have a pleural effusion and mildly short of breath. Her acute kidney injury is most likely due to her overall hypertension. We will attempt to diurese her slightly, but we will have to watch her overall creatinine. 6. We will plan to place her on hydralazine as needed to keep her systolic blood pressure under 220, but once again, we need to allow some permissive hypertension. If this is unable to keep her regulated, consideration should be made for a Cardene drip. 7. Further recommendations will be made based on the hospital course. Thank you for allowing me to see Hugh Robledo. If there are any questions, please do not hesitate to call. Arian Courtney DO VGP/sv , 11:56 PM , 03:58 AM
[2018-01-22 06:00] LABS: Alanine Aminotransferase 16 U/L (10-53); Aspartate Aminotransferase 24 U/L (15-37); Glomerular Filtration Rate 26 mL/min (>89)
[2018-01-22 06:02] LABS: Bilirubin,Urine Negative (Negative); Clarity,Urine Clear (Clear); Color,Urine Yellow (Yellw/Straw); Glucose,Urine (UA) Negative (Negative); Leukocyte Esterase,Urine Negative (Negative); Nitrite,Urine Negative (Negative); PH,Urine 5.5 (5.0-8.5); Specific Gravity,Urine 1.015 (1.002-1.035); Urobilinogen,Urine 0.2 mg/dL (Less than 2)
[2018-01-22 06:02] LABS: Total Protein 6.7 g/dL (6.4-8.2)
[2018-01-22 06:03] LABS: Alkaline Phosphatase 77 U/L (45-117)
[2018-01-22 06:09] LABS: Squamous Epithelial Cell,Urine 0-5 /hpf (0-5); WBC,Urine 0-5 /hpf (0-5)
[2018-01-22 06:10] LABS: Amphetamine Screen,Urine Neg (Neg); Barbiturate Screen,Urine Neg (Neg); Cannabinoid Screen,Urine Neg (Neg); Cocaine Screen,Urine Neg (Neg)
[2018-01-22 06:13] LABS: Opiate Screen,Urine Neg (Neg)
[2018-01-22] MEDS: Insulin NovoLOG Aspart Correctional Sugar Inj SQ SCH ×4 (08:15→21:01)
[2018-01-22] MEDS ORDERED: Aspirin 325 MG Tablet PO SCH (09:00)
[2018-01-22] MEDS: Sod Chloride 0.9% Inj 1,000 ML IV.CONT SCH (09:35)
--- NOTE | 2018-01-22 11:05 | P.PN ---
Subjective Interval history: 72-year-old female who is seen and examined today for follow-up on acute CVA, hypertensive emergency. Patient indicating that she is no longer experiencing any neurological symptoms. Denies any shortness of breath, difficulty breathing , chest pain. I did review all the findings that we have so far with the patient and discussed with her the multiple medical conditions that have been identified. Patient does understand. Patient blood pressure still significantly elevated. Patient remains afebrile. Physical Exam Vital signs: Vital Signs 01/21/18 12:05 01/21/18 12:09 01/21/18 12:40 Temperature 99.1 F Pulse Rate 102 H 102 H 96 H Respiratory Rate 16 16 Blood Pressure 216/117 H 235/132 H Pulse Oximetry 97 97 97 01/21/18 13:37 01/21/18 14:55 01/21/18 15:00 Temperature 98.9 F Pulse Rate 98 H 98 H Respiratory Rate 16 23 Blood Pressure 237/117 H 246/121 H Pulse Oximetry 95 97 01/21/18 15:37 01/21/18 16:00 01/21/18 16:13 Temperature Pulse Rate 90 92 H 100 H Respiratory Rate 28 H 20 Blood Pressure 234/115 H Pulse Oximetry 98 90 L 01/21/18 16:50 01/21/18 16:54 01/21/18 17:00 Temperature Pulse Rate 92 H 92 H Respiratory Rate Blood Pressure 240/114 H 248/116 H Pulse Oximetry 01/21/18 17:03 01/21/18 18:26 01/21/18 19:03 Temperature 98.3 F Pulse Rate 90 86 Respiratory Rate 26 H Blood Pressure 224/116 H 235/117 H Pulse Oximetry 97 98 01/21/18 20:00 01/21/18 20:03 01/21/18 20:37 Temperature Pulse Rate 88 Respiratory Rate 26 H Blood Pressure 207/103 H Pulse Oximetry 97 97 97 01/21/18 22:03 01/22/18 00:03 01/22/18 02:09 Temperature Pulse Rate 72 70 84 Respiratory Rate 12 14 20 Blood Pressure 198/101 H 206/103 H 220/120 H Pulse Oximetry 100 99 96 01/22/18 04:03 01/22/18 07:03 01/22/18 08:00 Temperature Pulse Rate 74 74 Respiratory Rate 16 17 Blood Pressure 184/95 H 190/85 H Pulse Oximetry 97 98 98 01/22/18 08:03 01/22/18 09:00 01/22/18 09:03 Temperature 99.2 F Pulse Rate 82 82 78 Respiratory Rate 21 21 Blood Pressure 206/96 H 200/92 H Pulse Oximetry 96 98 01/22/18 10:00 Temperature Pulse Rate 80 Respiratory Rate 17 Blood Pressure 207/96 H Pulse Oximetry 99 Intake & Output 01/21/18 01/22/18 01/22/18 18:59 06:59 18:59 Intake Total 1000 / 1000 Balance 1000 / 1000 Weight 82 kg Intake: IV 1000 / 1000 NS Inj 1,000 ML @ 42 mls/hr IV. 1000 / 1000 CONT .[id number] ROCIO Rx#: [id number] Other: Date of Last Bowel Movement 01/21/18 01/20/18 Narrative: GENERAL: Well-developed, well-nourished, in no acute distress. alert and orientated HEENT: Head is normocephalic without any lesions or masses noted. Facial features are symmetric. Eyes: Extraocular muscles are intact. Conjunctivae were clear. Oropharyngeal: Pharynx without any erythema edema. Tongue is midline without deviation. Buccal mucosa is moist without any masses or lesions NECK: Supple without any masses. Trachea midline no deviation. No JVD, CARDIAC: Regular rhythm, regular rate. S1/S2 are heard. Significant 3/6 crescendo type ejection cardiac murmur, no gallops or rubs. LUNGS: Clear to auscultation bilaterally. No wheeze, rhonchi or rales. No use of accessory muscles on inspiration or expiration. ABDOMEN: Soft, nontender. Nondistended. Bowel sounds heard in all 4 quadrants. No organomegaly or masses. Negative rebound, negative guarding EXTREMITIES: No edema, pulses are equal bilaterally. No cyanosis or clubbing NEUROLOGY: Mood and affect appear appropriate. Cranial nerves II through XII grossly intact. Moving all extremities, speech is clear Results - Labs CBC & Chem 7: 01/23/18 13:30 01/23/18 13:30 Laboratory Results - last 24 hr 01/21/18 01/21/18 01/21/18 12:07 12:07 12:07 CBC w Diff Auto diff final WBC 13.3 H RBC 3.56 L Hgb 10.0 L Hct 31.6 L MCV 88.8 MCH 28.1 MCHC 31.7 L RDW 13.8 Plt Count 313 MPV 10.2 Neut % (Auto) 86.9 H Lymph % (Auto) 7.5 L [place] % (Auto) 1.8 Eos % (Auto) 0.8 Baso % (Auto) 3.0 H Neut # (Auto) 11.6 H Lymph # (Auto) 1.0 [place] # (Auto) 0.2 Eos # (Auto) 0.1 Baso # (Auto) 0.4 H WBC Differential . Differential Comment . ESR PT 11.3 INR 1.1 APTT 22.4 L Fibrinogen 364 Sodium 142 Potassium 4.2 Chloride 106 Carbon Dioxide 23.8 Anion Gap 12 BUN 34 H Creatinine 2.10 H Estimated GFR 23 L POC Glucose Random Glucose 147 H Calcium 9.1 Total Bilirubin Direct Bilirubin Indirect Bilirubin AST ALT Alkaline Phosphatase Total Creatine Kinase 206 H CK-MB (CK-2) 2.9 CK-MB (CK-2) % 1.4 Troponin I 0.16 H B-Natriuretic Peptide Total Protein Albumin Vitamin B12 Folate TSH Urine Color Urine Clarity Urine pH Ur Specific [place] Urine Protein Urine Glucose (UA) Urine Ketones Urine Occult Blood Urine Nitrate Urine Bilirubin Urine Urobilinogen Ur Leukocyte Esterase Urine WBC Ur Squamous Epith Cells Micro UA Comment Ur Microscopic Review Urine Culture Comments Urine Opiates Screen Ur Barbiturates Screen Ur Amphetamines Screen U Benzodiazepines Scrn Urine Cocaine Screen U Cannabinoids Screen Blood Type Blood Type Recheck Antibody Screen 01/21/18 01/21/18 01/21/18 12:07 12:07 12:07 CBC w Diff WBC RBC Hgb Hct MCV MCH MCHC RDW Plt Count MPV Neut % (Auto) Lymph % (Auto) [place] % (Auto) Eos % (Auto) Baso % (Auto) Neut # (Auto) Lymph # (Auto) [place] # (Auto) Eos # (Auto) Baso # (Auto) WBC Differential Differential Comment ESR PT INR APTT Fibrinogen Sodium Potassium Chloride Carbon Dioxide Anion Gap BUN Creatinine Estimated GFR POC Glucose Random Glucose Calcium Total Bilirubin 0.6 Direct Bilirubin 0.2 Indirect Bilirubin 0.4 AST 33 ALT 19 Alkaline Phosphatase 81 Total Creatine Kinase CK-MB (CK-2) CK-MB (CK-2) % Troponin I B-Natriuretic Peptide 793 H Total Protein 7.6 Albumin 3.5 Vitamin B12 Folate TSH Urine Color Urine Clarity Urine pH Ur Specific [place] Urine Protein Urine Glucose (UA) Urine Ketones Urine Occult Blood Urine Nitrate Urine Bilirubin Urine Urobilinogen Ur Leukocyte Esterase Urine WBC Ur Squamous Epith Cells Micro UA Comment Ur Microscopic Review Urine Culture Comments Urine Opiates Screen Ur Barbiturates Screen Ur Amphetamines Screen U Benzodiazepines Scrn Urine Cocaine Screen U Cannabinoids Screen Blood Type A Positive Blood Type Recheck Required Antibody Screen Negative 01/21/18 01/21/18 01/21/18 12:25 17:01 18:20 CBC w Diff WBC RBC Hgb Hct MCV MCH MCHC RDW Plt Count MPV Neut % (Auto) Lymph % (Auto) [place] % (Auto) Eos % (Auto) Baso % (Auto) Neut # (Auto) Lymph # (Auto) [place] # (Auto) Eos # (Auto) Baso # (Auto) WBC Differential Differential Comment ESR PT INR APTT Fibrinogen Sodium Potassium Chloride Carbon Dioxide Anion Gap BUN Creatinine Estimated GFR POC Glucose 165 H 165 H Random Glucose Calcium Total Bilirubin Direct Bilirubin Indirect Bilirubin AST ALT Alkaline Phosphatase Total Creatine Kinase 236 H CK-MB (CK-2) 4.5 H CK-MB (CK-2) % 1.9 Troponin I 0.28 H D B-Natriuretic Peptide Total Protein Albumin Vitamin B12 921 Folate Greater than 20.0 H TSH 1.560 Urine Color Urine Clarity Urine pH Ur Specific [place] Urine Protein Urine Glucose (UA) Urine Ketones Urine Occult Blood Urine Nitrate Urine Bilirubin Urine Urobilinogen Ur Leukocyte Esterase Urine WBC Ur Squamous Epith Cells Micro UA Comment Ur Microscopic Review Urine Culture Comments Urine Opiates Screen Ur Barbiturates Screen Ur Amphetamines Screen U Benzodiazepines Scrn Urine Cocaine Screen U Cannabinoids Screen Blood Type Blood Type Recheck Antibody Screen 01/21/18 01/21/18 01/22/18 20:00 20:42 01:15 CBC w Diff WBC RBC Hgb Hct MCV MCH MCHC RDW Plt Count MPV Neut % (Auto) Lymph % (Auto) [place] % (Auto) Eos % (Auto) Baso % (Auto) Neut # (Auto) Lymph # (Auto) [place] # (Auto) Eos # (Auto) Baso # (Auto) WBC Differential Differential Comment ESR 31 H PT INR APTT Fibrinogen Sodium Potassium Chloride Carbon Dioxide Anion Gap BUN Creatinine Estimated GFR POC Glucose 145 H Random Glucose Calcium Total Bilirubin Direct Bilirubin Indirect Bilirubin AST ALT Alkaline Phosphatase Total Creatine Kinase 206 H CK-MB (CK-2) 4.0 H CK-MB (CK-2) % 1.9 Troponin I 0.38 H D B-Natriuretic Peptide Total Protein Albumin Vitamin B12 Folate TSH Urine Color Urine Clarity Urine pH Ur Specific [place] Urine Protein Urine Glucose (UA) Urine Ketones Urine Occult Blood Urine Nitrate Urine Bilirubin Urine Urobilinogen Ur Leukocyte Esterase Urine WBC Ur Squamous Epith Cells Micro UA Comment Ur Microscopic Review Urine Culture Comments Urine Opiates Screen Ur Barbiturates Screen Ur Amphetamines Screen U Benzodiazepines Scrn Urine Cocaine Screen U Cannabinoids Screen Blood Type Blood Type Recheck Antibody Screen 01/22/18 01/22/18 01/22/18 05:31 05:31 05:45 CBC w Diff Auto diff final WBC 12.7 H RBC 3.18 L Hgb 9.4 L Hct 27.7 L MCV 87.3 MCH 29.5 MCHC 33.8 RDW 14.2 Plt Count 278 MPV 9.8 Neut % (Auto) 87.2 H Lymph % (Auto) 6.3 L [place] % (Auto) 5.4 Eos % (Auto) 0.7 Baso % (Auto) 0.4 Neut # (Auto) 11.0 H Lymph # (Auto) 0.8 L [place] # (Auto) 0.7 Eos # (Auto) 0.1 Baso # (Auto) 0.1 WBC Differential . Differential Comment . ESR PT INR APTT Fibrinogen Sodium 144 Potassium 3.6 Chloride 108 H Carbon Dioxide 26.7 Anion Gap 9 BUN 33 H Creatinine 1.90 H Estimated GFR 26 L POC Glucose Random Glucose 114 H Calcium 8.6 Total Bilirubin 0.6 Direct Bilirubin Indirect Bilirubin AST 24 ALT 16 Alkaline Phosphatase 77 Total Creatine Kinase CK-MB (CK-2) CK-MB (CK-2) % Troponin I B-Natriuretic Peptide Total Protein 6.7 D Albumin 3.0 L Vitamin B12 Folate TSH Urine Color Urine Clarity Urine pH Ur Specific [place] Urine Protein Urine Glucose (UA) Urine Ketones Urine Occult Blood Urine Nitrate Urine Bilirubin Urine Urobilinogen Ur Leukocyte Esterase Urine WBC Ur Squamous Epith Cells Micro UA Comment Ur Microscopic Review Urine Culture Comments Urine Opiates Screen Neg Ur Barbiturates Screen Neg Ur Amphetamines Screen Neg U Benzodiazepines Scrn Neg Urine Cocaine Screen Neg U Cannabinoids Screen Neg Blood Type Blood Type Recheck Antibody Screen 01/22/18 01/22/18 05:45 08:11 CBC w Diff WBC RBC Hgb Hct MCV MCH MCHC RDW Plt Count MPV Neut % (Auto) Lymph % (Auto) [place] % (Auto) Eos % (Auto) Baso % (Auto) Neut # (Auto) Lymph # (Auto) [place] # (Auto) Eos # (Auto) Baso # (Auto) WBC Differential Differential Comment ESR PT INR APTT Fibrinogen Sodium Potassium Chloride Carbon Dioxide Anion Gap BUN Creatinine Estimated GFR POC Glucose 121 H Random Glucose Calcium Total Bilirubin Direct Bilirubin Indirect Bilirubin AST ALT Alkaline Phosphatase Total Creatine Kinase CK-MB (CK-2) CK-MB (CK-2) % Troponin I B-Natriuretic Peptide Total Protein Albumin Vitamin B12 Folate TSH Urine Color Yellow Urine Clarity Clear Urine pH 5.5 Ur Specific [place] 1.015 Urine Protein 30 H Urine Glucose (UA) Negative Urine Ketones Negative Urine Occult Blood Moderate H Urine Nitrate Negative Urine Bilirubin Negative Urine Urobilinogen 0.2 Ur Leukocyte Esterase Negative Urine WBC 0-5 Ur Squamous Epith Cells 0-5 Micro UA Comment Culture not ind Ur Microscopic Review Microscopic reviewed Urine Culture Comments Culture not ind Urine Opiates Screen Ur Barbiturates Screen Ur Amphetamines Screen U Benzodiazepines Scrn Urine Cocaine Screen U Cannabinoids Screen Blood Type Blood Type Recheck Antibody Screen - Imaging Impressions Carotid Doppler Study 01/21/18 00:00 CONCLUSION: 1. Right Internal Carotid Artery: No evidence of hemodynamically significant carotid stenosis. 2. Left Internal Carotid Artery: No evidence of hemodynamic clinically significant carotid stenosis. Chest Ultrasound 01/21/18 00:00 CONCLUSION: Large right pleural effusion. Chest X-Ray 01/21/18 12:04 CONCLUSION: Cardiomegaly and large right-sided pleural effusion. Head CT 01/21/18 12:04 CONCLUSION: 1. No acute intracranial abnormality. Report was called by Dr. Collado to Dr. Jarquin.] Head MRI 01/21/18 15:40 CONCLUSION: Possible small acute thalamic infarct on the right. Head MRA 01/21/18 15:40 CONCLUSION: 1. Negative MRA [place] ([place]) non contrast. 2. Specifically, no evidence for large vessel occlusion. Assessment and Plan - Assessment (1) Hypertensive emergency Code(s): I16.1 - Hypertensive emergency Status: Acute (2) TIA (transient ischemic attack) Code(s): G45.9 - Transient cerebral ischemic attack, unspecified Status: Acute (3) Elevated troponin Code(s): R74.8 - Abnormal levels of other serum enzymes Status: Acute (4) Acute kidney injury Code(s): N17.9 - Acute kidney failure, unspecified Status: Acute (5) Leukocytosis Code(s): D72.829 - Elevated white blood cell count, unspecified Status: Acute - Plan Acute neurological deficit with left-sided weakness -MRI of the brain did indicate a small acute thalamic infarct on the right -MRI of the brain was unremarkable -Carotid ultrasound did not indicate any evidence of hemodynamically significant stenosis -Awaiting echocardiogram -Awaiting Holter monitor -Further laboratory studies include B12, folate, TSH were unremarkable, still awaiting lipid panel, hemoglobin A 1C -Patient did have a mildly elevated sed rate -Awaiting PT/OT/ST evaluations -Neurology consult has been performed, they were called during stroke alert Hypertensive emergency -Unknown if patient does have underlying cardiac disease and hypertension -We will start blood pressure management at this time -Start Coreg 3.125 mg twice daily -Start lisinopril 5 mg daily -Start Lasix 20 mg daily -Vasotec/hydralazine as needed for blood pressure greater than 180/110 Elevated troponin, possible non-ST elevated myocardial infarction -Troponin continue to increase up to 0.38. -Serial EKG shows sinus rhythm with possible anterior myocardial infarction -Consulted cardiology who recommends blood pressure management. Possible outpatient ischemic workup when patient clinically stable from acute stroke -Patient will be started on beta-xuan, ED inhibitor -Continue aspirin, statin Acute kidney injury, improved -Unknown whether patient has chronic kidney disease from hypertensive renal disease -Continue cautious IV fluids at this time due to the patient having significant cardiomegaly, pleural effusion -Continue monitor renal functions -Avoid nephrotoxins Leukocytosis, improving -This could be reactive to underlying condition, no signs of infectious process at this time -Continue monitor CBC Cardiomegaly, cardiac murmur, pleural effusion -Patient does have history of rheumatic heart disease -Await the echocardiogram for further evaluation to evaluate for heart failure -beta type Natriuretic peptide was 793 -Chest ultrasound indicate approximate 1400 cc -Discussed with the patient when she is more stable we can perform thoracentesis to evaluate for the fluid Hyperglycemia -Accu-Cheks with sliding scale insulin -Awaiting hemoglobin A1c DVT prevention -Sequential compression devices
[2018-01-22 11:45] LABS: Cholesterol 151 mg/dL (120-200); Triglycerides 104 mg/dL (42-150)
[2018-01-22 11:46] LABS: Chol/HDL Ratio 4.24 Ratio; HDL Cholesterol 35.6 mg/dL (40.0-60.0); LDL Cholesterol,Calculated 95 mg/dL (0-99)
[2018-01-22] MEDS ORDERED: Furosemide 20 MG Tablet PO SCH (12:00)
[2018-01-22] MEDS: Lisinopril 5 MG Tablet PO SCH (13:27)
[2018-01-22 14:22] LABS: Hemoglobin A1c 6.7 % (4.3-6.0)
--- NOTE | 2018-01-22 14:31 | ECG ---
Date Performed: 01/21/2018 Time Performed: 12:44:56 PTAGE: 72 years EKG: Sinus rhythm LEFT VENTRICULAR HYPERTROPHY WITH SECONDARY ST-T CHANGE AXIS BORDERLINE LEFTWARD POOR R WAVE PROGRES TOM WHICH MAY BE NORMAL VARIANT ABNORMAL ECG NO PREVIOUS TRACING DOCTOR: Song Pringle Interpretating Date/Time 01/22/2018 14:30:56
--- NOTE | 2018-01-22 14:33 | ECG ---
Date Performed: 01/21/2018 Time Performed: 18:24:46 PTAGE: 72 years EKG: Sinus rhythm BORDERLINE VOLTAGE CRITERIA FOR LVH AXIS BORDERLINE LEFTWARD POOR R WAVE PROGRESSION ACROSS THE PREC ORDIUM Compared to previous tracing, ST-T changes have improved and QRS voltage is somewhat lower. AB NORMAL ECG PREVIOUS TRACING : 01/21/2018 12.44 DOCTOR: Song Pringle Interpretating Date/Time 01/22/2018 14:32:22
--- NOTE | 2018-01-22 14:35 | ECG ---
Date Performed: 01/22/2018 Time Performed: 00:16:52 PTAGE: 72 years EKG: Sinus rhythm POOR R WAVE PROGRESSION ACROSS THE PRECORDIUM AXIS BORDERLINE LEFTWARD MINOR NONSPECIFIC ST-T CHANGE S Compared to previous tracing, patient does not have voltage criteria for LVH. ABNORMAL ECG PREVIOUS TRACING : 01/21/2018 18.24 DOCTOR: Song Pringle Interpretating Date/Time 01/22/2018 14:33:31
--- NOTE | 2018-01-22 14:47 | ECHRPT ---
Indication: CVA/TIA CONCLUSIONS The left ventricular systolic function is hyperdynamic with an estimated ejection fraction in the ra nge of 65- 70%. Normal left ventricular size. Mild concentric left ventricular hypertrophy. No regional wall motion abnormalities are present. Mild thickening of the mitral valve leaflets. Calcification of both mitral valve leaflets. Mild mitral valve regurgitation. Diffuse calcification of the aortic valve. Mild aortic valve regurgitation. Mild to moderate aortic valve stenosis. Aortic valve mean gradient is 16 mmHg. There is trace tricuspid valve regurgitation. The estimated pulmonary arterial pressure is 57.6 mmHg. There is a moderate pericardial effusion present. BP: / HR: Rhythm: Sinus MEASUREMENTS (Male / Female) Normal Values Technical Quality:Fair DOPPLER AV Peak Velocity 307.0 cm/s AV Peak Gradient 37.7 mmHg AV Mean Gradient 16.0 mmHg AV Velocity Time Integral 56.8 cm AI Peak Velocity 239.0 cm/s AI Peak Gradient 22.8 mmHg AI Pressure Half Time 678.0 ms LVOT Peak Velocity 129.0 cm/s LVOT Peak Gradient 6.7 mmHg LVOT Velocity Time Integral 23.6 cm LV E' Lateral Velocity 3.4 cm/s LV E' Septal Velocity 4.7 cm/s TR Peak Velocity 345.0 cm/s TR Peak Gradient 47.6 mmHg Right Atrial Pressure 10.0 mmHg Pulmonary Artery Systolic Pressu 57.6 mmHg Right Ventricular Systolic Press 57.6 mmHg FINDINGS LEFT VENTRICLE The left ventricular systolic function is hyperdynamic with an estimated ejection fraction in the ra nge of 65- 70%. Normal left ventricular size. Mild concentric left ventricular hypertrophy. No regional wall motion abnormalities are present. RIGHT VENTRICLE Normal right ventricular size and systolic function. LEFT ATRIUM The left atrial size is normal. RIGHT ATRIUM The right atrial size is normal. ATRIAL SEPTUM Normal atrial septal thickness without atrial level shunting by limited color doppler interrogation. AORTA The aortic root and proximal ascending aorta are normal in size on limited imaging. MITRAL VALVE Mild thickening of the mitral valve leaflets. Calcification of both mitral valve leaflets. Mild mitral valve regurgitation. AORTIC VALVE Trileaflet aortic valve. Diffuse calcification of the aortic valve. Mild aortic valve regurgitation. Mild to moderate aortic valve stenosis. Aortic valve area is cm. Aortic valve mean gradient is 16 mmHg. TRICUSPID VALVE Structurally normal tricuspid valve. There is trace tricuspid valve regurgitation. The estimated pulmonary arterial pressure is 57.6 mmHg. PULMONARY VALVE No pulmonary valve regurgitation or stenosis. VESSELS The inferior vena cava is normal in size. PERICARDIUM There is a moderate pericardial effusion present. Shamir Grijalva MD, FACC (Electronically Signed) Final Date:22 January 2018 14:46
--- NOTE | 2018-01-22 16:48 | P.PNCA ---
Subjective Interval history: No events overnight Blood pressure better, allowing for permissive hypertension Neurologically feels better, no symptoms Medications and Allergies Active Medications: Active Medications Aspirin (Aspirin) 325 mg PO DAILY [facility] Last Admin: 01/22/18 09:34 Dose: 325 mg Atorvastatin Calcium (Lipitor) 10 mg PO HS [facility] Last Admin: 01/21/18 20:34 Dose: 10 mg Carvedilol (Coreg) 3.125 mg PO BID [facility] Last Admin: 01/22/18 13:28 Dose: 3.125 mg Dextrose (D50w Vial) 50 ml IV.PUSH UNSCH PRN PRN Reason: PER HYPOGLYCEMIA PROTOCOL Enalaprilat (Vasotec Inj) 1.25 mg IV.PUSH Q4H PRN PRN Reason: For SBP > 220 or DBP > 120 Last Admin: 01/21/18 16:56 Dose: 1.25 mg Furosemide (Lasix) 20 mg PO DAILY [facility] Last Admin: 01/22/18 13:27 Dose: 20 mg Glucagon (Glucagon Inj) 1 mg OTHER UNSCH PRN PRN Reason: for Hypoglycemia Protocol Hydralazine HCl (Apresoline Inj) 10 mg IV.PUSH Q4H PRN PRN Reason: SBP>180, DBP>110 Last Admin: 01/22/18 02:07 Dose: 10 mg Sodium Chloride (Ns Inj) 1,000 mls @ 42 mls/hr IV.CONT .[id number] [facility] Last Admin: 01/22/18 09:35 Dose: 42 mls/hr Insulin Aspart (Novolog Insulin Correction[place] Sugar Inj) 0 unit SQ ACHS [facility]; Protocol Last Admin: 01/22/18 13:14 Dose: Not Given Lisinopril (Prinivil) 5 mg PO DAILY [facility] Last Admin: 01/22/18 13:27 Dose: 5 mg Ondansetron HCl (Zofran Inj) 4 mg IV.PUSH Q6H PRN PRN Reason: NAUSEA Sodium Chloride (Ns Flush) 2 ml IV.FLUSH BID [facility] Last Admin: 01/22/18 09:35 Dose: Not Given Sodium Chloride (Ns Flush) 2 ml IV.FLUSH PRN PRN PRN Reason: FLUSH AFTER USING IV ACCESS Allergies Allergy/AdvReac Type Severity Reaction Status Date / Time No Known Allergies Allergy Unverified 01/21/18 12:15 Home Medications Medication Instructions Recorded Confirmed Type aspirin [Aspirin Low Dose] 81 mg PO DAILY 01/21/18 01/21/18 History [id number]-[id number]-myeg oil 1 cap PO DAILY 01/21/18 01/21/18 History [[place]-3 (with dpa)] vitamins A,C,E-jpmz-vflmqs 1 tab PO DAILY 01/21/18 01/21/18 History [PreserVision AREDS] Physical Exam Vital signs: Vital Signs 01/21/18 16:50 01/21/18 16:54 01/21/18 17:00 Temperature Pulse Rate 92 H 92 H Respiratory Rate Blood Pressure 240/114 H 248/116 H Pulse Oximetry 01/21/18 17:03 01/21/18 18:26 01/21/18 19:03 Temperature 98.3 F Pulse Rate 90 86 Respiratory Rate 26 H Blood Pressure 224/116 H 235/117 H Pulse Oximetry 97 98 01/21/18 20:00 01/21/18 20:03 01/21/18 20:37 Temperature Pulse Rate 88 Respiratory Rate 26 H Blood Pressure 207/103 H Pulse Oximetry 97 97 97 01/21/18 22:03 01/22/18 00:03 01/22/18 02:09 Temperature Pulse Rate 72 70 84 Respiratory Rate 12 14 20 Blood Pressure 198/101 H 206/103 H 220/120 H Pulse Oximetry 100 99 96 01/22/18 04:03 01/22/18 07:03 01/22/18 07:30 Temperature Pulse Rate 74 74 Respiratory Rate 16 17 Blood Pressure 184/95 H 190/85 H Pulse Oximetry 97 98 95 01/22/18 08:00 01/22/18 08:03 01/22/18 09:00 Temperature 99.2 F Pulse Rate 82 82 Respiratory Rate 21 Blood Pressure 206/96 H Pulse Oximetry 98 96 01/22/18 09:03 01/22/18 10:00 01/22/18 11:00 Temperature Pulse Rate 78 80 84 Respiratory Rate 21 17 22 Blood Pressure 200/92 H 207/96 H 216/92 H Pulse Oximetry 98 99 97 01/22/18 12:03 01/22/18 12:25 Temperature 98.4 F Pulse Rate 76 80 Respiratory Rate 19 18 Blood Pressure 211/96 H 203/98 H Pulse Oximetry 100 92 L Intake & Output 01/21/18 01/22/1818 18:59 06:59 18:59 Intake Total 1000 / 1000 Balance 1000 / 1000 Weight 82 kg Intake: IV 1000 / 1000 NS Inj 1,000 ML @ 42 mls/hr IV. 1000 / 1000 CONT .[id number] [facility] Rx#: [id number] Other: Date of Last Bowel Movement 01/21/18 01/20/18 Narrative: GENERAL: Well-developed, well-nourished, in no acute distress. alert and orientated HEENT: Head is normocephalic without any lesions or masses noted. Facial features are symmetric. Eyes: Extraocular muscles are intact. Conjunctivae were clear. Oropharyngeal: Pharynx without any erythema edema. Tongue is midline without deviation. Buccal mucosa is moist without any masses or lesions NECK: Supple without any masses. Trachea midline no deviation. No JVD, CARDIAC: Regular rhythm, regular rate. S1/S2 are heard. Significant 3/6 crescendo type ejection cardiac murmur, no gallops or rubs. LUNGS: Clear to auscultation bilaterally. No wheeze, rhonchi or rales. No use of accessory muscles on inspiration or expiration. ABDOMEN: Soft, nontender. Nondistended. Bowel sounds heard in all 4 quadrants. No organomegaly or masses. Negative rebound, negative guarding EXTREMITIES: No edema, pulses are equal bilaterally. No cyanosis or clubbing NEUROLOGY: Mood and affect appear appropriate. Cranial nerves II through XII grossly intact. Moving all extremities, speech is clear Results 01/22/18 05:31 01/22/18 05:31 Cardiac Enzymes 01/21/18 01/21/18 01/21/18 Range/Units 12:07 12:07 12:07 AST 33 (15-37) U/L CK-MB (CK-2) 2.9 (0.5-3.6) ng/mL Troponin I 0.16 H (0.02-0.05) ng/mL B-Natriuretic Peptide 793 H (0-100) pg/mL 01/21/18 01/22/18 01/22/18 Range/Units 18:20 01:15 05:31 AST 24 (15-37) U/L CK-MB (CK-2) 4.5 H 4.0 H (0.5-3.6) ng/mL Troponin I 0.28 H D 0.38 H D (0.02-0.05) ng/mL B-Natriuretic Peptide (0-100) pg/mL Coagulation 01/21/18 01/21/18 Range/Units 12:07 12:07 PT 11.3 (9.8-11.6) sec APTT 22.4 L (24.3-30.1) sec B-Natriuretic Peptide 793 H (0-100) pg/mL Lipids 01/22/18 Range/Units 05:31 Triglycerides 104 (42-150) mg/dL Cholesterol 151 (120-200) mg/dL HDL Cholesterol 35.6 L (40.0-60.0) mg/dL Cholesterol/HDL Ratio 4.24 Ratio CBC 01/21/18 01/22/18 Range/Units 12:07 05:31 WBC 13.3 H 12.7 H (4.0-11.0) th/mm3 RBC 3.56 L 3.18 L (4.00-5.30) mil/mm3 Hgb 10.0 L 9.4 L (11.6-15.3) gm/dL Hct 31.6 L 27.7 L (35.0-46.0) % Plt Count 313 278 (150-450) th/mm3 Neut # (Auto) 11.6 H 11.0 H (1.8-7.7) th/mm3 Lymph # (Auto) 1.0 0.8 L (1.0-4.8) th/mm3 [place] # (Auto) 0.2 0.7 (0.0-0.9) th/mm3 Eos # (Auto) 0.1 0.1 (0.0-0.4) th/mm3 Baso # (Auto) 0.4 H 0.1 (0.0-0.2) th/mm3 Comprehensive Metabolic Panel 01/21/18 01/21/18 01/22/18 Range/Units 12:07 12:07 05:31 Sodium 142 144 (136-145) meq/L Potassium 4.2 3.6 (3.5-5.1) meq/L Chloride 106 108 H (98-107) meq/L Carbon Dioxide 23.8 26.7 (21.0-32.0) meq/L BUN 34 H 33 H (7-18) mg/dL Creatinine 2.10 H 1.90 H (0.50-1.00) mg/dL Calcium 9.1 8.6 (8.5-10.1) mg/dL Direct Bilirubin 0.2 (0.0-0.2) mg/dL Indirect Bilirubin 0.4 (0.0-0.8) mg/dL AST 33 24 (15-37) U/L ALT 19 16 (10-53) U/L Alkaline Phosphatase 81 77 (45-117) U/L Total Protein 7.6 6.7 D (6.4-8.2) g/dL Albumin 3.5 3.0 L (3.4-5.0) g/dL Intake and Output 01/22/18 01/22/18 01/22/18 06:59 14:59 22:59 Intake Total 1000 / 1000 Balance 1000 / 1000 Intake: IV 1000 / 1000 NS Inj 1,000 ML @ 42 mls/hr IV. 1000 / 1000 CONT .[id number] [facility] Rx#: [id number] Other: Date of Last Bowel Movement 01/20/18 - Imaging and Cardiology Imaging: Impressions Carotid Doppler Study 01/21/18 00:00 CONCLUSION: 1. Right Internal Carotid Artery: No evidence of hemodynamically significant carotid stenosis. 2. Left Internal Carotid Artery: No evidence of hemodynamic clinically significant carotid stenosis. Chest Ultrasound 01/21/18 00:00 CONCLUSION: Large right pleural effusion. Chest X-Ray 01/21/18 12:04 CONCLUSION: Cardiomegaly and large right-sided pleural effusion. Head CT 01/21/18 12:04 CONCLUSION: 1. No acute intracranial abnormality. Report was called by Dr. Collado to Dr. Jarquin.] Head MRI 01/21/18 15:40 CONCLUSION: Possible small acute thalamic infarct on the right. Head MRA 01/21/18 15:40 CONCLUSION: 1. Negative MRA [place] ([place] [facility] [place]) non contrast. 2. Specifically, no evidence for large vessel occlusion. Assessment and Plan - Assessment (1) History of rheumatic fever as a child Code(s): Z86.79 - Personal history of other diseases of the circulatory system Status: Acute (2) Murmur, cardiac Code(s): R01.1 - Cardiac murmur, unspecified Status: Acute (3) TIA (transient ischemic attack) Code(s): G45.9 - Transient cerebral ischemic attack, unspecified Status: Acute (4) Acute renal insufficiency Code(s): N28.9 - Disorder of kidney and ureter, unspecified Status: Acute (5) Elevated troponin Code(s): R74.8 - Abnormal levels of other serum enzymes Status: Acute (6) Hypertensive emergency Code(s): I16.1 - Hypertensive emergency Status: Acute - Plan 1) CVA Most likely hypertension induced 2) Hypertensive emergency Will allow for permissive HTN per neurology halfway will need better BP control Agree with Coreg/Lisinopril 3) Pericardial/pleural effusion Continue diuresis Watch creatinine Consider eventual thoracentesis 4) EF 65-70% Mild LVH MV thickened Mild MR Mild AR Mild to moderate 5) Elevated troponin No signs of ACS Most likely Type 2 due to HTN emergency Plan for follow up outpatient for ischemic evaluation was clinically past neurologic event (6-8 weeks)
[2018-01-23] MEDS: Lisinopril 5 MG Tablet PO SCH (09:10)
[2018-01-23] MEDS: Insulin NovoLOG Aspart Correctional Sugar Inj SQ SCH ×4 (10:23→21:29)
[2018-01-23] MEDS: Carvedilol 6.25 MG Tablet PO SCH ×2 (13:16→21:30)
[2018-01-23] MEDS: Lisinopril 10 MG Tablet PO SCH (13:17)
[2018-01-23 13:45] LABS: Baso # (Auto) 0.1 th/mm3 (0.0-0.2); Baso % (Auto) 0.6 % (0.0-2.0); Eos # (Auto) 0.4 th/mm3 (0.0-0.4); Eos % (Auto) 4.2 % (0.0-4.0); Hematocrit 27.8 % (35.0-46.0); Hemoglobin 9.6 gm/dL (11.6-15.3); Lymph % (Auto) 10.3 % (9.0-44.0); Mean Corpuscular HGB Conc 34.7 % (32.0-36.0); Mean Corpuscular Hemoglobin 30.5 pg (27.0-34.0); Mean Corpuscular Volume 87.7 fL (80.0-100.0); Mean Platelet Volume 9.6 fL (7.0-11.0); Mono # (Auto) 0.6 th/mm3 (0.0-0.9); Mono % (Auto) 5.8 % (0.0-8.0); Neut # (Auto) 7.7 th/mm3 (1.8-7.7); Neut % (Auto) 79.1 % (16.0-70.0); Platelet Count 279 th/mm3 (150-450); Red Blood Count 3.17 mil/mm3 (4.00-5.30); Red Cell Distribution Width 14.5 % (11.6-17.2); White Blood Count 9.8 th/mm3 (4.0-11.0)
[2018-01-23 13:50] LABS: Potassium 3.6 meq/L (3.5-5.1)
[2018-01-23 13:53] LABS: Calcium 8.7 mg/dL (8.5-10.1)
--- NOTE | 2018-01-23 14:14 | XR ---
EXAM DATE: 01/23/2018 12:00 AM EDT AGE/SEX: 72 years / Female INDICATIONS: . Short of breath. CLINICAL DATA: This is the patient's initial encounter. Patient reports that signs and symptoms have been present for 3 days and indicates a pain score of 0/10. MEDICAL/SURGICAL HISTORY: . Hypertension None. COMPARISON: [facility], CHEST 1V SINGLE AP, 01/21/2018. . FINDINGS: Right lower lung zone airspace consolidation and small pleural effusion which has improved from prior exam. Mild airspace consolidation at the left lung base. Cardiac lead is enlarged. Remainder of exam is unchanged. CONCLUSION: 1. Improved right-sided pleural effusion with persistent right lower lung zone airspace consolidatio n. 2. Mild left lower lung zone airspace disease, presumably atelectasis. Electronically signed by: Willis Sanford MD 01/23/2018 2:12 PM EDT
--- NOTE | 2018-01-23 16:00 | P.PN ---
Subjective Interval history: 72-year-old stroke, hypertensive emergency, pleural effusion, pericardial effusion, non-ST elevated myocardial infarction. Patient is resting comfortably. Denies any symptoms. Patient did have an episode of hypoxia the night, however she is not requiring oxygen during the day. When she is on oxygen she is 100% O2. Patient blood pressure is improving with starting blood pressure medications. Patient remains afebrile. Physical Exam Vital signs: Vital Signs 01/22/18 16:40 01/22/18 17:00 01/22/18 18:00 Temperature 98.0 F Pulse Rate 76 72 76 Respiratory Rate 21 22 15 Blood Pressure 190/88 H Pulse Oximetry 89 L 94 L 91 L 01/22/18 18:35 01/22/18 19:00 01/22/18 19:30 Temperature Pulse Rate 76 76 Respiratory Rate 19 18 Blood Pressure 170/75 H Pulse Oximetry 90 L 88 L 96 01/22/18 20:00 01/22/18 21:00 01/22/18 22:00 Temperature 98.7 F Pulse Rate 70 74 64 Respiratory Rate 18 21 20 Blood Pressure 203/105 H Pulse Oximetry 98 98 98 01/22/18 23:00 01/23/18 00:00 01/23/18 00:51 Temperature 98.9 F Pulse Rate 64 62 62 Respiratory Rate 19 19 18 Blood Pressure 163/66 H 163/66 H Pulse Oximetry 98 98 99 01/23/18 01:00 01/23/18 02:00 01/23/18 03:00 Temperature Pulse Rate 60 62 60 Respiratory Rate 19 9 L 18 Blood Pressure Pulse Oximetry 99 98 99 01/23/18 04:00 01/23/18 05:00 01/23/18 05:10 Temperature Pulse Rate 58 L 64 64 Respiratory Rate 18 17 7 L Blood Pressure 154/88 H 154/88 H Pulse Oximetry 99 99 99 01/23/18 06:00 01/23/18 06:22 01/23/18 07:00 Temperature Pulse Rate 64 62 62 Respiratory Rate 12 10 L 7 L Blood Pressure 182/75 H Pulse Oximetry 99 99 99 01/23/18 07:30 01/23/18 08:00 01/23/18 08:38 Temperature Pulse Rate 68 Respiratory Rate 19 Blood Pressure Pulse Oximetry 98 89 L 87 L 01/23/18 08:51 01/23/18 09:00 01/23/18 09:11 Temperature Pulse Rate 81 76 70 Respiratory Rate 25 H 18 Blood Pressure 203/93 H Pulse Oximetry 96 99 01/23/18 10:00 01/23/18 11:00 01/23/18 12:00 Temperature 99.6 F Pulse Rate 66 66 62 Respiratory Rate 20 23 19 Blood Pressure Pulse Oximetry 99 99 93 L Intake & Output 01/22/18 01/23/18 01/23/18 18:59 06:59 18:59 Intake Total 1377 / 1377 Balance 1377 / 1377 Weight 79.3 kg Intake: IV 1377 / 1377 NS Inj 1,000 ML @ 42 mls/hr IV. 1377 / 1377 CONT .[id number] [facility] Rx#: [id number] Other: Date of Last Bowel Movement 01/20/18 01/20/18 Narrative: GENERAL: Well-developed, well-nourished, in no acute distress. alert and orientated HEENT: Head is normocephalic without any lesions or masses noted. Facial features are symmetric. Eyes: Extraocular muscles are intact. Conjunctivae were clear. Oropharyngeal: Pharynx without any erythema edema. Tongue is midline without deviation. Buccal mucosa is moist without any masses or lesions NECK: Supple without any masses. Trachea midline no deviation. No JVD, CARDIAC: Regular rhythm, regular rate. S1/S2 are heard. Significant 3/6 crescendo type ejection cardiac murmur, no gallops or rubs. LUNGS: Clear to auscultation bilaterally. No wheeze, rhonchi or rales. No use of accessory muscles on inspiration or expiration. ABDOMEN: Soft, nontender. Nondistended. Bowel sounds heard in all 4 quadrants. No organomegaly or masses. Negative rebound, negative guarding EXTREMITIES: No edema, pulses are equal bilaterally. No cyanosis or clubbing NEUROLOGY: Mood and affect appear appropriate. Cranial nerves II through XII grossly intact. Moving all extremities, speech is clear Results - Labs CBC & Chem 7: 01/23/18 13:30 01/23/18 13:30 Laboratory Results - last 24 hr 01/22/18 01/22/18 01/23/18 16:35 20:58 08:31 CBC w Diff WBC RBC Hgb Hct MCV MCH MCHC RDW Plt Count MPV Neut % (Auto) Lymph % (Auto) [place] % (Auto) Eos % (Auto) Baso % (Auto) Neut # (Auto) Lymph # (Auto) [place] # (Auto) Eos # (Auto) Baso # (Auto) WBC Differential Differential Comment Sodium Potassium Chloride Carbon Dioxide Anion Gap BUN Creatinine Estimated GFR POC Glucose 131 H 167 H 109 Random Glucose Calcium 01/23/18 01/23/18 01/23/18 12:09 13:30 13:30 CBC w Diff Auto diff final WBC 9.8 RBC 3.17 L Hgb 9.6 L Hct 27.8 L MCV 87.7 MCH 30.5 MCHC 34.7 RDW 14.5 Plt Count 279 MPV 9.6 Neut % (Auto) 79.1 H Lymph % (Auto) 10.3 [place] % (Auto) 5.8 Eos % (Auto) 4.2 H Baso % (Auto) 0.6 Neut # (Auto) 7.7 Lymph # (Auto) 1.0 [place] # (Auto) 0.6 Eos # (Auto) 0.4 Baso # (Auto) 0.1 WBC Differential . Differential Comment . Sodium 144 Potassium 3.6 Chloride 107 Carbon Dioxide 29.0 Anion Gap 8 BUN 34 H Creatinine 2.20 H Estimated GFR 22 L POC Glucose 162 H Random Glucose 145 H Calcium 8.7 - Imaging Impressions Chest X-Ray 01/23/18 00:00 CONCLUSION: 1. Improved right-sided pleural effusion with persistent right lower lung zone airspace consolidation. 2. Mild left lower lung zone airspace disease, presumably atelectasis. - Procedures ECHOCARDIOGRAM CONCLUSIONS The left ventricular systolic function is hyperdynamic with an estimated ejection fraction in the range of 65- 70%. Normal left ventricular size. Mild concentric left ventricular hypertrophy. No regional wall motion abnormalities are present. Mild thickening of the mitral valve leaflets. Calcification of both mitral valve leaflets. Mild mitral valve regurgitation. Diffuse calcification of the aortic valve. Mild aortic valve regurgitation. Mild to moderate aortic valve stenosis. Aortic valve mean gradient is 16 mmHg. There is trace tricuspid valve regurgitation. The estimated pulmonary arterial pressure is 57.6 mmHg. There is a moderate pericardial effusion present. Assessment and Plan - Assessment (1) Hypertensive emergency Code(s): I16.1 - Hypertensive emergency Status: Acute (2) TIA (transient ischemic attack) Code(s): G45.9 - Transient cerebral ischemic attack, unspecified Status: Acute (3) Elevated troponin Code(s): R74.8 - Abnormal levels of other serum enzymes Status: Acute (4) Acute kidney injury Code(s): N17.9 - Acute kidney failure, unspecified Status: Acute (5) Leukocytosis Code(s): D72.829 - Elevated white blood cell count, unspecified Status: Acute - Plan Acute neurological deficit with left-sided weakness -MRI of the brain did indicate a small acute thalamic infarct on the right -MRI of the brain was unremarkable -Carotid ultrasound did not indicate any evidence of hemodynamically significant stenosis -Echocardiogram, see results above -Awaiting Holter monitor, results -Further laboratory studies include B12, folate, TSH were unremarkable, -Hemoglobin A1c 6.7 -LDL 95 -Patient did have a mildly elevated sed rate -PT/OT evaluations have been performed, awaiting speech therapy evaluation -Neurology consult has been performed, they were called during stroke alert -Continue aspirin and statin Hypertensive emergency, improving -Echocardiogram indicating significant increase PA peak pressure, patient with significant pulmonary hypertension -Continue blood pressure management at this time -Increase Coreg 6.25 mg twice daily -Increase lisinopril 10 mg daily -Patient is on Lasix 40 mg IV daily -Vasotec/hydralazine as needed for blood pressure greater than 180/110 Elevated troponin, possible non-ST elevated myocardial infarction -Troponin continue to increase up to 0.38. -Serial EKG shows sinus rhythm with possible anterior myocardial infarction -Consulted cardiology who recommends blood pressure management. Possible outpatient ischemic workup when patient clinically stable from acute stroke -Patient will be started on beta-xuan, ED inhibitor -Continue aspirin, statin Acute kidney injury, improved -Unknown whether patient has chronic kidney disease from hypertensive renal disease -Continue cautious IV fluids at this time due to the patient having significant cardiomegaly, pleural effusion -Continue monitor renal functions -Avoid nephrotoxins Leukocytosis, improving -This could be reactive to underlying condition, no signs of infectious process at this time -Continue monitor CBC Cardiomegaly, cardiac murmur, pleural effusion, pericardial effusion -Patient does have history of rheumatic heart disease -Await the echocardiogram for further evaluation to evaluate for heart failure -beta type Natriuretic peptide was 793 -Chest ultrasound indicate approximate 1400 cc -Follow-up chest x-ray indicating significant improvement of the pleural effusion with diuresis Hyperglycemia -Accu-Cheks with sliding scale insulin -Hemoglobin A1c 6.7 DVT prevention -Sequential compression devices Discharge Planning: Discharge planning 24-48 hours depending on patient response to treatment.
[2018-01-24 05:32] LABS: Baso # (Auto) 0.2 th/mm3 (0.0-0.2); Baso % (Auto) 1.8 % (0.0-2.0); Eos # (Auto) 0.6 th/mm3 (0.0-0.4); Eos % (Auto) 6.8 % (0.0-4.0); Hematocrit 25.9 % (35.0-46.0); Hemoglobin 8.5 gm/dL (11.6-15.3); Lymph # (Auto) 1.5 th/mm3 (1.0-4.8); Lymph % (Auto) 16.9 % (9.0-44.0); Mean Corpuscular HGB Conc 32.9 % (32.0-36.0); Mean Corpuscular Hemoglobin 28.9 pg (27.0-34.0); Mean Corpuscular Volume 87.8 fL (80.0-100.0); Mean Platelet Volume 10.8 fL (7.0-11.0); Mono # (Auto) 0.8 th/mm3 (0.0-0.9); Mono % (Auto) 9.1 % (0.0-8.0); Neut # (Auto) 5.6 th/mm3 (1.8-7.7); Neut % (Auto) 65.4 % (16.0-70.0); Platelet Count 260 th/mm3 (150-450); Red Blood Count 2.95 mil/mm3 (4.00-5.30); Red Cell Distribution Width 14.3 % (11.6-17.2); White Blood Count 8.7 th/mm3 (4.0-11.0)
[2018-01-24 05:47] LABS: Potassium 3.4 meq/L (3.5-5.1)
[2018-01-24 05:50] LABS: Calcium 8.3 mg/dL (8.5-10.1)
[2018-01-24 05:51] LABS: Carbon Dioxide 27.4 meq/L (21.0-32.0)
[2018-01-24] MEDS: Insulin NovoLOG Aspart Correctional Sugar Inj SQ SCH ×2 (07:36→11:40)
[2018-01-24] MEDS: Lisinopril 10 MG Tablet PO SCH (08:33)
[2018-01-24] MEDS: Carvedilol 6.25 MG Tablet PO SCH (08:38)
--- NOTE | 2018-01-24 09:00 | P.PN ---
Subjective Interval history: Follow-up CVA, pleural effusion and kidney disease. Patient seen and examined, sitting up in chair comfortably on room air. No shortness of breath no chest pain. Patient is urinating well. Bout bowel movement this morning. Denies any pain. No weakness noted. Ambulating well without any problems. Patient is eager to get home today. Her blood pressure still with systolic in the 190s. RN to give medication this morning. Will recheck. May need adjustment. Physical Exam Vital signs: Vital Signs 01/23/18 09:00 01/23/18 09:11 01/23/18 10:00 Temperature Pulse Rate 76 70 66 Respiratory Rate 25 H 18 20 Blood Pressure 203/93 H Pulse Oximetry 96 99 99 01/23/18 11:00 01/23/18 12:00 01/23/18 14:27 Temperature 99.6 F Pulse Rate 66 62 68 Respiratory Rate 23 19 9 L Blood Pressure Pulse Oximetry 99 93 L 01/23/18 15:00 01/23/18 16:00 01/23/18 17:22 Temperature 97.8 F Pulse Rate 60 66 73 Respiratory Rate 17 15 18 Blood Pressure 168/93 H 202/87 H Pulse Oximetry 95 01/23/18 20:00 01/24/18 00:00 01/24/18 04:00 Temperature 98.2 F 98.6 F 97.7 F Pulse Rate 67 57 L 60 Respiratory Rate 16 16 16 Blood Pressure 185/84 H 157/71 H 175/74 H Pulse Oximetry 95 94 L 93 L 01/24/18 07:54 01/24/18 08:00 Temperature 99.3 F Pulse Rate 66 69 Respiratory Rate 20 Blood Pressure 194/87 H Pulse Oximetry 95 95 Intake & Output 01/23/18 01/24/18 01/24/18 18:59 06:59 18:59 Intake Total 240 / 240 Balance 240 / 240 Weight 79.3 kg Intake: Oral 240 / 240 Other: Date of Last Bowel Movement 01/20/18 01/23/18 Narrative: GENERAL: Well-developed, well-nourished, in no acute distress. alert and orientated HEENT: Head is normocephalic without any lesions or masses noted. Facial features are symmetric. Eyes: Extraocular muscles are intact. Conjunctivae were clear. Oropharyngeal: Pharynx without any erythema edema. Tongue is midline without deviation. Buccal mucosa is moist without any masses or lesions NECK: Supple without any masses. Trachea midline no deviation. No JVD, CARDIAC: Regular rhythm, regular rate. S1/S2 are heard. Significant 3/6 crescendo type ejection cardiac murmur, no gallops or rubs. LUNGS: Clear to auscultation bilaterally. No wheeze, rhonchi or rales. No use of accessory muscles on inspiration or expiration. ABDOMEN: Soft, nontender. Nondistended. Bowel sounds heard in all 4 quadrants. No organomegaly or masses. Negative rebound, negative guarding EXTREMITIES: No edema, pulses are equal bilaterally. No cyanosis or clubbing NEUROLOGY: Mood and affect appear appropriate. Cranial nerves II through XII grossly intact. Moving all extremities, speech is clear Results - Labs CBC & Chem 7: 01/24/18 04:50 01/24/18 04:50 Laboratory Results - last 24 hr 01/23/18 01/23/18 01/23/18 12:09 13:30 13:30 CBC w Diff Auto diff final WBC 9.8 RBC 3.17 L Hgb 9.6 L Hct 27.8 L MCV 87.7 MCH 30.5 MCHC 34.7 RDW 14.5 Plt Count 279 MPV 9.6 Neut % (Auto) 79.1 H Lymph % (Auto) 10.3 [place] % (Auto) 5.8 Eos % (Auto) 4.2 H Baso % (Auto) 0.6 Neut # (Auto) 7.7 Lymph # (Auto) 1.0 [place] # (Auto) 0.6 Eos # (Auto) 0.4 Baso # (Auto) 0.1 WBC Differential . Differential Comment . Sodium 144 Potassium 3.6 Chloride 107 Carbon Dioxide 29.0 Anion Gap 8 BUN 34 H Creatinine 2.20 H Estimated GFR 22 L POC Glucose 162 H Random Glucose 145 H Calcium 8.7 01/23/18 01/24/18 01/24/18 20:28 04:50 04:50 CBC w Diff Auto diff final WBC 8.7 RBC 2.95 L Hgb 8.5 L Hct 25.9 L MCV 87.8 MCH 28.9 MCHC 32.9 RDW 14.3 Plt Count 260 MPV 10.8 Neut % (Auto) 65.4 Lymph % (Auto) 16.9 [place] % (Auto) 9.1 H Eos % (Auto) 6.8 H Baso % (Auto) 1.8 Neut # (Auto) 5.6 Lymph # (Auto) 1.5 [place] # (Auto) 0.8 Eos # (Auto) 0.6 H Baso # (Auto) 0.2 WBC Differential . Differential Comment . Sodium 144 Potassium 3.4 L Chloride 109 H Carbon Dioxide 27.4 Anion Gap 8 BUN 35 H Creatinine 2.20 H Estimated GFR 22 L POC Glucose 164 H Random Glucose 95 Calcium 8.3 L 01/24/18 07:30 CBC w Diff WBC RBC Hgb Hct MCV MCH MCHC RDW Plt Count MPV Neut % (Auto) Lymph % (Auto) [place] % (Auto) Eos % (Auto) Baso % (Auto) Neut # (Auto) Lymph # (Auto) [place] # (Auto) Eos # (Auto) Baso # (Auto) WBC Differential Differential Comment Sodium Potassium Chloride Carbon Dioxide Anion Gap BUN Creatinine Estimated GFR POC Glucose 100 Random Glucose Calcium - Imaging Impressions Chest X-Ray 01/23/18 00:00 CONCLUSION: 1. Improved right-sided pleural effusion with persistent right lower lung zone airspace consolidation. 2. Mild left lower lung zone airspace disease, presumably atelectasis. - Procedures ECHOCARDIOGRAM CONCLUSIONS The left ventricular systolic function is hyperdynamic with an estimated ejection fraction in the range of 65- 70%. Normal left ventricular size. Mild concentric left ventricular hypertrophy. No regional wall motion abnormalities are present. Mild thickening of the mitral valve leaflets. Calcification of both mitral valve leaflets. Mild mitral valve regurgitation. Diffuse calcification of the aortic valve. Mild aortic valve regurgitation. Mild to moderate aortic valve stenosis. Aortic valve mean gradient is 16 mmHg. There is trace tricuspid valve regurgitation. The estimated pulmonary arterial pressure is 57.6 mmHg. There is a moderate pericardial effusion present. Assessment and Plan - Assessment (1) Hypertensive emergency Code(s): I16.1 - Hypertensive emergency Status: Acute (2) TIA (transient ischemic attack) Code(s): G45.9 - Transient cerebral ischemic attack, unspecified Status: Acute (3) Elevated troponin Code(s): R74.8 - Abnormal levels of other serum enzymes Status: Acute (4) Acute kidney injury Code(s): N17.9 - Acute kidney failure, unspecified Status: Acute (5) Leukocytosis Code(s): D72.829 - Elevated white blood cell count, unspecified Status: Acute - Plan This is a 72-year-old female patient with: Acute neurological deficit with left-sided weakness -MRI of the brain did indicate a small acute thalamic infarct on the right -MRI of the brain was unremarkable -Carotid ultrasound did not indicate any evidence of hemodynamically significant stenosis -Echocardiogram, indicating significant increase PA peak pressure, patient with significant pulmonary hypertension\ -Awaiting Holter monitor, results -Further laboratory studies include B12, folate, TSH were unremarkable -Hemoglobin A1c 6.7 -LDL 95 -Patient did have a mildly elevated sed rate. -PT/OT evaluations have been performed, no further recommendations from speech therapy. No aspiration noted. Tolerating diet well. -Neurology consult has been performed, they were called during stroke alert. -Continue aspirin and statin Hypertensive emergency, improving -Echocardiogram indicating significant increase PA peak pressure, patient with significant pulmonary hypertension -Continue blood pressure management at this time. Systolic in the 190s this morning. This was prior to medication administration. Follow trends. May need medication adjustment. -Continue Coreg 6.25 mg twice daily -Continue lisinopril 10 mg daily -Patient is on Lasix 40 mg IV daily -Vasotec/hydralazine as needed for blood pressure greater than 180/110. Elevated troponin, possible non-ST elevated myocardial infarction -Troponin continue to increase up to 0.38. -Serial EKG shows sinus rhythm with possible anterior myocardial infarction -Consulted cardiology who recommends blood pressure management. Possible outpatient ischemic workup when patient clinically stable from acute stroke -Continue on beta-xuan, ED inhibitor -Continue aspirin, statin. -Chest pain or symptoms at all. Acute kidney injury, improved -Unknown whether patient has chronic kidney disease from hypertensive renal disease. No improvement in creatinine this morning. Patient is urinating well. This is likely hypertensive renal disease. -Patient has significant cardiomegaly, pleural effusion -Continue monitor renal functions. -Avoid nephrotoxins. Leukocytosis, improved. -This could be reactive to underlying condition, no signs of infectious process at this time Cardiomegaly, cardiac murmur, pleural effusion, pericardial effusion -Patient does have history of rheumatic heart disease -Echocardiogram as above. -BNP was 793 presentation. -Chest ultrasound indicate approximate 1400 cc. -Follow-up chest x-ray indicating significant improvement of the pleural effusion with diuresis Hyperglycemia -Accu-Cheks with sliding scale insulin. Follow blood sugar trends. -Hemoglobin A1c 6.7 DVT prevention -Sequential compression devices Discharge Planning: Awaiting improvement in her blood pressure.
[2018-01-24] MEDS ORDERED: Carvedilol 6.25 MG Tablet PO SCH ×2 (10:56→21:00)
[2018-01-24] MEDS ORDERED: Carvedilol 6.25 MG Tablet PO ONE (12:00)
--- NOTE | 2018-01-24 14:22 | P.DS ---
Date of admission: 01/21/18 13:16 Primary care physician: No Primary Care Physician Brief History from admission: 72-year-old female with known history of rheumatic heart disease who has never been to a doctor since she was 21 years old presented to the hospital because acute onset of left-sided weakness. Patient states that she went to her hairdresser today and when she got home at approximately 11 AM she went to get out of the van and she felt weak so she called her who came over to try to help her to manage when she stand on her left side she fell down to the ground and was unable to get herself back up. They did call the ambulance who brought her to the hospital at approximately 1145. Stroke alert was called once patient arrived at the hospital. Patient indicates that since coming to the hospital she has regained her strength in the left side of her body. She denied any visual disturbances, headache, paresthesia, difficulty speaking, difficulty eating swallowing food, loss of bowel or bladder control, slurred speech. Patient had workup done emergency department and found to have hypertensive emergency with neurological symptoms. Patient was recommend admission to the ICU for continued care management. Patient update on day of discharge: Patient seen and examined today, sitting up in chair comfortably no apparent distress. Blood pressure more controlled. Will discharge home to follow-up with PCP. Encouraged to have patient take blood pressure and document for primary care to get a better idea on blood pressure trends at home.. DS: Diagnosis - Discharge Diagnosis (1) Hypertensive emergency Status: Acute (2) TIA (transient ischemic attack) Status: Acute (3) Elevated troponin Status: Acute (4) Acute kidney injury Status: Acute (5) Leukocytosis Status: Acute DS: Medications - Discharge Medications Prescriptions: carvedilol [Coreg] 12.5 mg PO BID 30 Days #60 tab DS: Summary Hospital Course: This is a 72-year-old female patient with acute neurological deficit with left- sided weakness. MRI of the brain did indicate a small acute thalamic infarct on the right. MRI of the brain was unremarkable. Carotid ultrasound did not indicate any evidence of hemodynamically significant stenosis. Echocardiogram, indicating significant increase PA peak pressure, patient with significant pulmonary hypertension. Further laboratory studies include B12, folate, TSH were unremarkable. Hemoglobin A1c 6.7. LDL 95. Patient did have a mildly elevated sed rate. PT/OT evaluations have been performed, no further recommendations from speech therapy. No aspiration noted. Tolerating diet well. Neurology consult has been performed, they were called during stroke alert and followed patient during hospitalization. Continue aspirin and statin. Hypertensive urgency, echocardiogram as above. Blood pressure management with Coreg 12.5 mg twice a day, lisinopril 10 mg daily and Lasix 40 mg daily. Patient also had elevated troponin with possible non-STEMI, serial EKG shows sinus rhythm with possible anterior myocardial infarction. Consulted cardiology who recommends blood pressure management. Possible outpatient ischemic workup when patient clinically stable from acute stroke. Continue on beta-xuan, ED inhibitor. Continue aspirin, statin. Chest pain or symptoms at all. Acute kidney injury, improved. Unknown whether patient has chronic kidney disease from hypertensive renal disease. No improvement in creatinine this morning. Patient is urinating well. This is likely hypertensive renal disease. Continue monitor renal functions. Avoid nephrotoxins. Order for patient to follow-up with primary care physician. She also has some leukocytosis which improved upon day of discharge. No underlying condition no signs of infectious process at this time. Cardiomegaly, cardiac murmur, pleural effusion, pericardial effusion. Patient does have history of rheumatic heart disease. Echocardiogram as above. BNP was 793 presentation. Chest ultrasound indicate approximate 1400 cc. Follow-up chest x-ray indicating significant improvement of the pleural effusion with diuresis. Patient is comfortable on room air. Follow-up with PCP. Patient also had hyperglycemia, hemoglobin A1c 6.7. Blood sugar trends were controlled during hospitalization. - Time Spent with Patient Total time spent providing and/or coordinating discharge services: Greater than 30 minutes Exam Vital signs: Vital Signs 01/23/18 14:27 01/23/18 15:00 01/23/18 16:00 Temperature Pulse Rate 68 60 66 Respiratory Rate 9 L 17 15 Blood Pressure 168/93 H Pulse Oximetry 01/23/18 17:22 01/23/18 20:00 01/24/18 00:00 Temperature 97.8 F 98.2 F 98.6 F Pulse Rate 73 67 57 L Respiratory Rate 18 16 16 Blood Pressure 202/87 H 185/84 H 157/71 H Pulse Oximetry 95 95 94 L 01/24/18 04:00 01/24/18 07:54 01/24/18 08:00 Temperature 97.7 F 99.3 F Pulse Rate 60 66 69 Respiratory Rate 16 20 Blood Pressure 175/74 H 194/87 H Pulse Oximetry 93 L 95 95 10/16/18 08:01 01/24/18 09:38 01/24/18 12:00 Temperature 98.0 F Pulse Rate 75 Respiratory Rate 21 Blood Pressure 180/70 H 198/85 H Pulse Oximetry 92 L 95 01/24/18 13:53 Temperature Pulse Rate Respiratory Rate Blood Pressure 178/80 H Pulse Oximetry Intake & Output 01/23/18 01/24/18 01/24/18 18:59 06:59 18:59 Intake Total 480 / 480 Output Total 200 / 200 Balance 280 / 280 Weight 79.3 kg Intake: Oral 480 / 480 Output: Urine 200 / 200 Other: Date of Last Bowel Movement 01/20/18 01/23/18 Narrative: GENERAL: Well-developed, well-nourished, in no acute distress. alert and orientated HEENT: Head is normocephalic without any lesions or masses noted. Facial features are symmetric. Eyes: Extraocular muscles are intact. Conjunctivae were clear. Oropharyngeal: Pharynx without any erythema edema. Tongue is midline without deviation. Buccal mucosa is moist without any masses or lesions NECK: Supple without any masses. Trachea midline no deviation. No JVD, CARDIAC: Regular rhythm, regular rate. S1/S2 are heard. Significant 3/6 crescendo type ejection cardiac murmur, no gallops or rubs. LUNGS: Clear to auscultation bilaterally. No wheeze, rhonchi or rales. No use of accessory muscles on inspiration or expiration. ABDOMEN: Soft, nontender. Nondistended. Bowel sounds heard in all 4 quadrants. No organomegaly or masses. Negative rebound, negative guarding EXTREMITIES: No edema, pulses are equal bilaterally. No cyanosis or clubbing NEUROLOGY: Mood and affect appear appropriate. Cranial nerves II through XII grossly intact. Moving all extremities, speech is clear Results Procedures completed during hospitalization: ECHOCARDIOGRAM CONCLUSIONS The left ventricular systolic function is hyperdynamic with an estimated ejection fraction in the range of 65- 70%. Normal left ventricular size. Mild concentric left ventricular hypertrophy. No regional wall motion abnormalities are present. Mild thickening of the mitral valve leaflets. Calcification of both mitral valve leaflets. Mild mitral valve regurgitation. Diffuse calcification of the aortic valve. Mild aortic valve regurgitation. Mild to moderate aortic valve stenosis. Aortic valve mean gradient is 16 mmHg. There is trace tricuspid valve regurgitation. The estimated pulmonary arterial pressure is 57.6 mmHg. There is a moderate pericardial effusion present. Labs on day of discharge: Labs from last 24 hours 01/24/18 01/24/18 01/24/18 11:17 07:30 04:50 CBC w Diff Auto diff final WBC 8.7 RBC 2.95 L Hgb 8.5 L Hct 25.9 L MCV 87.8 MCH 28.9 MCHC 32.9 RDW 14.3 Plt Count 260 MPV 10.8 Neut % (Auto) 65.4 Lymph % (Auto) 16.9 [place] % (Auto) 9.1 H Eos % (Auto) 6.8 H Baso % (Auto) 1.8 Neut # (Auto) 5.6 Lymph # (Auto) 1.5 [place] # (Auto) 0.8 Eos # (Auto) 0.6 H Baso # (Auto) 0.2 WBC Differential . Differential Comment . Sodium Potassium Chloride Carbon Dioxide Anion Gap BUN Creatinine Estimated GFR POC Glucose 188 H 100 Random Glucose Calcium 01/24/18 01/23/18 04:50 20:28 CBC w Diff WBC RBC Hgb Hct MCV MCH MCHC RDW Plt Count MPV Neut % (Auto) Lymph % (Auto) [place] % (Auto) Eos % (Auto) Baso % (Auto) Neut # (Auto) Lymph # (Auto) [place] # (Auto) Eos # (Auto) Baso # (Auto) WBC Differential Differential Comment Sodium 144 Potassium 3.4 L Chloride 109 H Carbon Dioxide 27.4 Anion Gap 8 BUN 35 H Creatinine 2.20 H Estimated GFR 22 L POC Glucose 164 H Random Glucose 95 Calcium 8.3 L - Impressions ITS Impressions Carotid Doppler Study 01/21/18 00:00 CONCLUSION: 1. Right Internal Carotid Artery: No evidence of hemodynamically significant carotid stenosis. 2. Left Internal Carotid Artery: No evidence of hemodynamic clinically significant carotid stenosis. Chest Ultrasound 01/21/18 00:00 CONCLUSION: Large right pleural effusion. Head CT 01/21/18 12:04 CONCLUSION: 1. No acute intracranial abnormality. Report was called by Dr. Collado to Dr. Jarquin.] Head MRI 01/21/18 15:40 CONCLUSION: Possible small acute thalamic infarct on the right. Head MRA 01/21/18 15:40 CONCLUSION: 1. Negative MRA [place] ([place]) non contrast. 2. Specifically, no evidence for large vessel occlusion. Chest X-Ray 01/23/18 00:00 CONCLUSION: 1. Improved right-sided pleural effusion with persistent right lower lung zone airspace consolidation. 2. Mild left lower lung zone airspace disease, presumably atelectasis. Discharge Plan - Discharge Disposition Patient Disposition: W/Home Health Service - Discharge Condition Condition: Fair - Discharge Order Discharge Orders: Discharge Order (Routine); Ordered 01/24/18 Ordered By: Rowan De La Vega - Discharge Details Anticipated Discharge Date: 01/24/18 Discharge Comment: OK TO DC IF SYS <160 1 HR AFTER CLONIDINE ADMINISTRATION - Physicians Team Primary Care Provider: Primary Care Yifan,Jackie Attending Provider: Agustin Borrero Other Providers: Tanya Montez MD ; Arian Courtney DO ; Yu Cárdenas MD
--- NOTE | 2018-01-25 09:20 | P.DCO ---
- Diagnosis (1) Hypertensive emergency Status: Acute (2) TIA (transient ischemic attack) Status: Acute - Physical Therapy Order: Evaluate and treat, Improve ambulation, Strength and gait training - Home Health Nursing Order: Medical education, Signs/symptoms of disease process, Medication education-adverse effect, Nursing assessment with vital signs - Case Management Consult Yes - Certification I have seen patient Hugh Robledo on 01/25/18. My clinical findings support the need for the requested home health care services because: Deconditioned with increased weakness I certify that my clinical findings support that this patient is homebound because: Unsteady gait/balance
--- NOTE | 2018-01-26 15:30 | HM ---
Date Performed: 01/21/2018 Time Performed: 18:01:00 HOOKUP DATE: 01/21/18 06:01:00 PM Sat ANALYSIS START TIME: 01/21/2018 6:06:00 PM ANALYSIS END TIME: 01/22/2018 5:54:56 PM PATIENT AGE: 72 PATIENT HEIGHT: 64 PATIENT WEIGHT: 180 DRUG LIST: ROOM [id number] PATIENT DIAGNOSIS: TIA/NSTEMI TEST NARRATIVE: The patient's average heart rate was 78 BPM. No episodes of tachycardia wer e noted. No episodes of bradycardia were noted. No pauses exceeding 2.0 seconds were noted. 2422 ventricular ectopics, which represented 2% of the total beat count, were noted. The highest renae tricular ectopic frequency occurred from 10:00 PM to 11:00 PM Sat. During this time 263 VE(s) occurr ed. Ventricular ectopics were observed as 2409 isolated beat(s), as 5 couplet(s) and as 1 run(s). S ome of the ventricular beats occurred in bigeminal cycles. 585 supraventricular ectopics, which r epresented 1% of the total beat count, were noted. The highest supraventricular ectopic frequency oc curred from 02:00 AM to 03:00 AM Sun. During this time 60 SVE(s) occurred. No episodes of ST dep ression (defined as -1.0 mm or more) were noted in channel 1. No episodes of ST depression (defined as -1.0 mm or more) were noted in channel 2. No episodes of ST depression (defined as -1.0 mm or mor e) were noted in channel 3. TEST INTERPRETATION: Occasional short atrial runs and complex ventricular ectopy including coupl ets and bigeminy as well as 1 ventricular triplet. No sustained atrial fibrillation or other dysrhyth mias. However, due to frequent ectopy and history of TIA, would recommend buttermaker monitor or loop r ecorder to formerly exclude atrial fibrillation. Signed by : Burton Rodriguez
== END 2018-01-24 17:29 | disposition home health service (06) ==
LOC: PHED 12:00 → PHEDA 13:16 → PHICU 14:30 → PHEDA 14:39 → PH3 01-23 17:03
PROVIDERS: ADMIT Hospitalist; ATTEND Hospitalist